=== PATIENT | male | born 1960 | race Caucasian/White ===

== ENCOUNTER 2016-04-16 05:16 | Inpatient (IN) | payer MEDICARE ==
--- NOTE | ~2016-04-16 | OR ---
Unit #: [id number] #: [id number] Patient: DEBRA MARROQUIN [id number] [place], [place] [address] [id number] I MR#: [id number] NAME: DEBRA MARROQUIN ROOM: [facility] Date of Procedure: 04/20/2016 Admission Date: 04/16/2016 Surgeon: Sanna Roa M.D. : 1960 Attending Physician: Yemi Mathur M.D. Primary Care Physician: Ricardo Grimaldo M.D. OPERATIVE REPORT PREOPERATIVE DIAGNOSIS Right foot infection. POSTOPERATIVE DIAGNOSIS Right foot infection. PROCEDURE PERFORMED Right foot incision and drainage through dorsal and medial approaches, deep abscess (). 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 ANESTHESIA General. INDICATIONS FOR SURGERY This 54-year-old poorly controlled diabetic, underwent right tibial sesamoidectomy 3 days ago. He now has a worsening white blood cell count of an excess of 24,000 and his foot now shows a pointing abscess in the dorsal aspect of the first interspace. DESCRIPTION OF PROCEDURE The patient was taken to the operating room and placed in supine position and general anesthetic was induced. The right foot was identified as the correct operative extremity during the time-out procedure. The IV antibiotic protocol was not followed because he was on preoperative IV antibiotic coverage. The right foot was prepped and draped in usual sterile fashion. The foot was exsanguinated with Esmarch bandage, which was left wrapped around the ankle to act as a tourniquet. A dorsal longitudinal incision was made over the first interspace extending between the toes measuring about 7 cm. Pus was obtained and this was cultured for aerobic and anaerobic culture and sensitivity. There appeared to be a pus tracking from the plantar aspect of the first MTP joint up the flexor hallucis longus tendon sheath into the mid foot. This was opened and copiously irrigated. A medial longitudinal incision was then made over the first MTP joint measuring 5 cm. The subcutaneous tissue was divided. The joint capsule was opened. The joint was opened. There was no apparent pus in the joint, but the joint did communicate with the plantar wound at the site of the tibial sesamoidectomy indicating he did in fact have an open joint. Unit #: [id number] #: [id number] Patient: DEBRA MARROQUIN Because there was no pus seen in the joint, this was irrigated and then closed with 3-0 nylon horizontal mattress sutures. The tourniquet was released. Bleeding was uneventful. The dorsal interspace wound was then packed with Betadine-soaked 1-inch roll gauze. Sterile fluff, 4x4s, Kerlix, ABD pads, Gurwinder wrap, and postop shoe were placed. The patient was then transported to the recovery room in stable condition. ESTIMATED BLOOD LOSS Minimal. COMPLICATIONS None. SPECIMENS Aerobic and anaerobic cultures, right foot. TOURNIQUET TIME 15 minutes. Dictated by.Nicci Gilbert/jennifer TD: 04/20/2016 22:27 JOB #: [id number] OPERATIVE REPORT X Braulio Roa MD X PROCEDURE OPERATIVE NOTE
--- NOTE | ~2016-04-16 | CR63 ---
[facility] A Service of [facility] & [facility] RADIOLOGY TEXT RESULTS PATIENT: DEBRA MARROQUIN LOCATION: [facility] [id number] : [birth year] UNIT #: [id number] AGE: [address]: Yemi Mathur MD SEX: M ORDER DR: [id number] [facility] [address] [facility]. [place], [place] [address] [id number] I MR#: [id number] Acc #: [id number] NAME: DEBRA MARROQUIN : 1960 SEX: M STUDY DATE/TIME: 04/20/2016 14:34 UNIT: [facility] ROOM: [facility] STUDY DESCRIPTION: CR Chest 2 View Attending Physician: Yemi Mathur M.D. Ordering Physician: Yemi Mathur M.D. Primary Care Physician: Ricardo Grimaldo M.D. MEDICAL IMAGING REPORT This report is preliminary unless electronic signature is present EXAM PA and lateral chest, 04/20/2016. HISTORY Shortness of air and fever starting today. FINDINGS PA and lateral views of the chest were obtained. The heart size is upper limits of normal. The vascularity is normal, and the lungs are clear. There are sternotomy wires present, and there is postop change in the thoracic spine. IMPRESSION No active disease. Dictated by... Stu Randle M.D. THIS IS AN ELECTRONICALLY VERIFIED REPORT Stu Randle M.D. at 04/21/2016 12:18 PM MAGUE/chanell TD: 04/20/2016 19:20 JOB #: [id number] MEDICAL IMAGING REPORT COPY
--- NOTE | ~2016-04-16 | A ---
[facility] Nutrition Therapy DATE: 04/27/16 Patient: DEBRA MARROQUIN Physician: FILOMENA Address: [address] Room/Bed: [address] [place] [address], Zip: [place] [address] Admit Date: 04/16/16 Date of : [birth year] Height: 5 9 Weight: 200 90.71 NUTRITIONAL ASSESSMENT: REASON: LOS NUTRITION ASSESSMENT 55 YO MALE ADMITTED FOR INFECTED ULCER RIGHT FOOT, FEVER PMH: DM, CKD, ANEMIA, HTN, CHRONIC PAIN, CAD, CABG Anthropometrics: Ht: 69" Wt: 90.7 kg BMI: 29.5 Labs: Creat 1.7 Ca++ 8.1 Accuchecks 79-145 GFR 45 Meds: Novolin, NaCl, methadone HCl, miralax, novolog, phenergan, lipitor, zofran, lopressor I/O & Bowel function: 5505/3702, last BM 04/27 Skin Integrity: Closed surgical incision right foot Edema: BLE- generalized RUE 1+ Diet: Consistent carbohydrate diet Assessment: Chart reviewed, events noted. RD seeing the pt for LOS nutrition assessment. RD spoke with the pt at bedside. Pt reports having a variable appetite, low blood sugars. and reportedly eats ~100% of meals in the morning, and intake declines throughout the day. Pt is agreeable to Glucerna once daily for supplemental nutrition. Will order at hs to prevent low blood sugars throughout the night. RD discussed the importance of glucose control, noting that the pt was educated by RDs at [facility] in May of 2015. Pt denied having any questions regarding consistent carbohydrate strategies. It is evident that the pt is not complying to the diet based on his HgbA1C upon admisison (11.6%). Pt will be NPO at midnight for a transmetatarsal amputation debridement. Dx: Impaired glycemic control RT poorly controlled DM AEB HgbA1C 11.6%, accuchecks 79-145. Intervention: 1. Consistent carbohydrate diet 2. Glucerna once daily at hs Monitoring, Evaluation and Goals: 1. Oral intake; tolerate >50-75% meals 2. Labs; WNL: glucose, promote glycemic control [facility] Nutrition Therapy DATE: 04/27/16 Patient: DEBRA MARROQUIN Physician: COLBY Address: [address] Room/Bed: [address] [place] [address], Zip: [place] [address] Admit Date: 04/16/16 Date of : [birth year] Height: 5 9 Weight: 200 90.71 3. Weight; prevent unintentional weight loss Recommendations: 1. Continue current diet as tolerated. 2. Glucerna once daily at for supplemental protein. 3. Pt may benefit from seeing an outpatient RD for follow up and accountability regarding DM/ consistent carbohydrate diet. Pt is at mild nutritional risk. Respectfully, ALICE BRINK RD, LD [employer] [facility] cc: client file
--- NOTE | ~2016-04-16 | CO ---
Unit #: [id number] #: [id number] Patient: DEBRA MARROQUIN [id number] [address] [address] [id number] I MR#: [id number] NAME: DEBRA MARROQUIN ROOM: [facility] Age: 55 Sex: M Admission Date: 04/16/2016 : 1960 Attending Physician: Yemi Mathur M.D. Primary Care Physician: Ricardo Grimaldo M.D. Consultation Date: 04/16/2016 CONSULTATION REPORT CHIEF COMPLAINT Right leg pain and swelling, positive ulcer of the right foot. HISTORY OF PRESENT ILLNESS Mr. Marroquin is a 55-year-old white male with a history of diabetes type 2, hypertension, and coronary artery disease who presented to the ER yesterday with reports of experiencing a spider bite about one month ago to the right medial leg. The patient states after the spider bite he noticed redness, swelling and pain of the extremity. The patient reports after the spider bite, he noticed the ulcer appear on his right foot. The patient reports fevers, sweats, chills and drainage from the ulcer. The patient reports pain with ambulation and states that he feels a sharp, stabbing pain in his right foot. The patient denies hspa-rhx-zcinful medication use to alleviate the pain. He denies further aggravating symptoms. The patient states his pain is a 10 out of 10 on the pain scale. The patient has a history of a previous ulcer to the right foot but states that this ulcer was on his big toe and has been healed. PAST MEDICAL HISTORY 1. Diabetes mellitus type 2. 2. Hyperlipidemia. 3. Hypertension. PAST SURGICAL HISTORY 1. Cardiac bypass surgery. 2. Cholecystectomy. ALLERGIES No known drug allergies. HOME MEDICATIONS 1. Carisoprodol. 2. Methadone HCl. 3. Aspirin. 4. Norvasc. 5. Lipitor. 6. Metoprolol. 7. Lisinopril. 8. Metformin. 9. Novolin. 10. Doxycycline. SOCIAL HISTORY He is a nonsmoker. Unit #: [id number] #: [id number] Patient: DEBRA MARROQUIN FAMILY HISTORY Congestive heart failure. REVIEW OF SYSTEMS The patient reports fever, nausea and vomiting. The patient reports pain, swelling and redness of his right lower extremity and foot. The patient reports numbness and tingling of his right foot. PHYSICAL EXAMINATION VITAL SIGNS: Blood pressure 191/121, temperature of 101, pulse 109, respirations 24, O2 99% on room air. EXTREMITIES: Right lower extremity and foot - erythema of his right lower extremity (extends from slightly below the right knee to the right foot). Warmth of the right lower extremity and foot. Tenderness to palpation of his right plantar foot and arch. Ulcer present on the right medial plantar foot/metatarsal head. No visible drainage. Partial range of motion of the right toes limited due to swelling. Full ankle dorsiflexion and plantar flexion. DIAGNOSTIC STUDIES LABORATORY: CBC - white blood cell count 17.2, hemoglobin 11.7, hematocrit 36.6. CMP - glucose 312. IMAGING: X-rays shows soft tissue swelling without evidence of soft tissue gas or acute injury. ASSESSMENT AND PLAN 1. Right foot cellulitis: Continue antibiotics per infectious disease. Right foot wound cultures per aerobic and anaerobic. C and S. 2. Infected right foot ulcer of the plantar first metatarsal head, likely secondary to prominence of a tibial sesamoid: Will order a right foot MRI without contrast. To apply dry dressing to his right foot. Patient to remain NPO. Dictated by... Andreina Durbin PA-C for Sanna Roa M.D. MARILU/silvino TD: 04/17/2016 08:38 JOB #: [id number] CC: [facility] CONSULTATION REPORT X X CONSULTATION REPORT
--- NOTE | ~2016-04-16 | CR127 ---
[facility] A Service of [facility] & [facility] RADIOLOGY TEXT RESULTS PATIENT: DEBRA MARROQUIN LOCATION: [place] [address] : [birth year] UNIT #: [id number] AGE: [address]: Yemi Mathur MD SEX: M ORDER DR: [id number] [facility] [address] [facility]. [place], [place] [address] [id number] I MR#: [id number] Acc #: [id number] NAME: DEBRA MARROQUIN : 1960 SEX: M STUDY DATE/TIME: 04/16/2016 05:20 UNIT: [facility] ROOM: [id number] STUDY DESCRIPTION: CR Foot Complete Min 3 View Rt Attending Physician: Yemi Mathur M.D. Ordering Physician: Saad Perez D.O. Primary Care Physician: Ricardo Grimaldo M.D. MEDICAL IMAGING REPORT This report is preliminary unless electronic signature is present EXAM Right foot, 04/16 at 05:20 INDICATION Swelling in the foot this morning. Patient is diabetic. FINDINGS 3 views of the right foot were obtained. No comparison radiographs. There is a talar beak. No fracture or malalignment is seen. There is soft tissue swelling in the foot and ankle. No soft tissue gas is seen. IMPRESSION Soft tissue swelling without soft tissue gas or evidence of acute injury. Dictated by... Manuel Bravo Jr., M.D. THIS IS AN ELECTRONICALLY VERIFIED REPORT Manuel Bravo Jr., M.D. at 04/17/2016 6:04 AM XI/maria l TD: 04/16/2016 08:11 JOB #: [id number] MEDICAL IMAGING REPORT COPY
--- NOTE | ~2016-04-16 | CO ---
Unit #: [id number] #: [id number] Patient: DEBRA MARROQUIN [id number] [address] [address] [id number] I MR#: [id number] NAME: DEBRA MARROQUIN ROOM: [facility] Age: 55 Sex: M Admission Date: 04/16/2016 : 1960 Attending Physician: Yemi Mathur M.D. Primary Care Physician: Ricardo Grimaldo M.D. Consultation Date: 04/16/2016 CONSULTATION REPORT CHIEF COMPLAINT Right leg pain and swelling, positive ulcer of the right foot. HISTORY OF PRESENT ILLNESS We have a 55-year-old white male with a history of diabetes type 2, hypertension and coronary artery disease who presented to the ER yesterday with reports of about 1 month ago suffering from a spider bite to the right medial leg. The patient states, after the spider bite, he noticed redness, swelling and pain of the extremity. The patient reports, after spider bite, the ulcer appeared on his right foot. The patient reports fevers, sweats and chills and drainage from the ulcer. The patient reports pain with ambulation and states that he feels a sharp stabbing pain in his foot. The patient denies smjb-oba-fiawlzr medication use to alleviate the pain. Denies further aggravating symptoms. The patient states his pain is a 10/10 on the pain scale. The patient has a history of a previous ulcer to the same foot but states that this ulcer was on his big toe and had healed. PAST MEDICAL HISTORY Diabetes mellitus, hyperlipidemia, hypertension. PAST SURGICAL HISTORY Cardiac bypass surgery, cholecystectomy. ALLERGIES No known drug allergies. HOME MEDICATIONS Carisoprodol, methadone HCL, aspirin, Norvasc, Lipitor, Metoprolol, lisinopril, metformin, Novolin and doxycycline. SOCIAL HISTORY He is a nonsmoker. FAMILY HISTORY He has CHF in his family. REVIEW OF SYSTEMS Positive for fever, nausea and vomiting, pain and swelling and redness of his right lower extremity/foot. Positive numbness and tingling of his right foot. PHYSICAL EXAMINATION VITAL SIGNS: Blood pressure of 191/121, temperature of 101, pulse of 109, Unit #: [id number] #: [id number] Patient: CARA,DEBRA respirations of 24, O2 at 99% on room air. EXTREMITIES: Erythema of his right lower extremity below the knee. Positive warmth of his right lower extremity or foot. Tenderness to palpation of his right plantar foot/arch. Positive ulcer of his right medial plantar foot/metatarsal head. No visible drainage. Positive movement of his right toes. Positive ankle dorsiflexion and plantarflexion. DIAGNOSTIC STUDIES LABS: His CBC has a white blood cell count of 17.2, hemoglobin of 11.7, hematocrit of 36.6. CMP shows glucose of 312. IMAGING: X-ray shows positive soft tissue swelling without evidence of soft tissue gas or acute injury. ASSESSMENT/PLAN 1. Right foot cellulitis. Continue antibiotics per infectious disease. Right foot wound cultures for aerobic and anaerobic. C and S. 2. Infected right foot ulcer of the plantar first metatarsal head, likely secondary to prominence of a tibial sesamoid. Right foot MRI without contrast. Apply dry dressing to his right foot. Patient to remain NPO. Dictated by... Andreina Durbin PA-C for Nicci Paz/rohini TD: 04/16/2016 12:14 JOB #: [id number] CC: Alba Dobbins CONSULTATION REPORT X X CONSULTATION REPORT
--- NOTE | ~2016-04-16 | OR ---
Unit #: [id number] #: [id number] Patient: DEBRA MARROQUIN [id number] [address] [place], [place] [address] [id number] I MR#: [id number] NAME: DEBRA MARROQUIN ROOM: 461 Date of Procedure: 04/23/2016 Admission Date: 04/16/2016 Surgeon: Jose De Jesus Flowers M.D. : 1960 Attending Physician: Yemi Mathur M.D. Primary Care Physician: Ricardo Grimaldo M.D. OPERATIVE REPORT PREOPERATIVE DIAGNOSES 1. Extensive soft tissue necrosis of right foot, status post incision and drainage x2. 2. Right foot flexor tenosynovitis of flexor hallucis longus and flexor digitorum longus. POSTOPERATIVE DIAGNOSES 1. Extensive soft tissue necrosis of right foot, status post incision and drainage x2. 2. Right foot flexor tenosynovitis of flexor hallucis longus and flexor digitorum longus. PROCEDURE PERFORMED Open right foot transmetatarsal amputation. ANESTHESIA General. ESTIMATED BLOOD LOSS 50 mL. INDICATIONS FOR PROCEDURE Mr. Marroquin is a 55-year-old gentleman with poorly controlled diabetes mellitus and overwhelming infection in the right forefoot. He has undergone two prior debridements and now has an open wound along the first web space with extensive necrosis of the soft tissue about the foot and concern for tracking flexor tenosynovitis. He has been seen and evaluated by Dr. Roa as well as myself, who recommended open transmetatarsal amputation at this point, given the severity of the soft tissue necrosis and severity of the infection. We discussed alternative of procedure, as well as risks, benefits, and alternatives. At this point, he elects to proceed. DESCRIPTION OF PROCEDURE The patient was identified in the preoperative holding area. The operative site was marked. The patient is on standing IV antibiotics and further preoperative antibiotics were not required. The patient was brought to the operating room and placed supine on the operating table. A general anesthetic was induced. The right lower extremity was prepped and draped in sterile fashion. The leg was exsanguinated with gravity exsanguination and the tourniquet inflated. Unit #: [id number] #: [id number] Patient: CARA,DEBRA The skin flap was marked out over the foot taking into consideration the previous incisions, which included a longitudinal split along the first web space as well as a medial incision along the first metatarsophalangeal joint and extending up in the metatarsal. This skin flap was fashioned excising the large plantar ulceration as well. The skin was incised sharply and dissection carried down through the subcutaneous tissue. The skin flap was elevated dorsally along the metatarsals. Each metatarsal was isolated and dissected. A small microsagittal saw was then used to perform an osteotomy of metatarsals one through five preserving normal cascade from medial to lateral. The metatarsals were dissected free from the inferior plantar flap. This was completed at the plantar skin flap in the metatarsals and residual foot passed off the field. The flexor tendons along the FDL in particular were necrotic and were debrided and excised, revealing deep to this a large purulent pocket of fluid. This was tracking up along the flexor tendon space as well as infection along the flexor hallucis longus. This area was thoroughly debrided with rongeurs and sharp excisional debridement with a 15-blade knife. Hemostat was passed up the flexor tendon sheath to confirm adequate decompression. The wound was then irrigated copiously. The wound was then left open and packed with Betadine soaked gauze. The skin flaps were left long for later revision of the skin flaps and delayed primary wound closure. The foot was then dressed with well-padded sterile dressings. DISPOSITION The patient was transported to the recovery room in stable condition. Dictated by... Nicci Heath/jennifer TD: 04/24/2016 16:12 JOB #: [id number] OPERATIVE REPORT X Jose De Jesus Flowers MD X PROCEDURE OPERATIVE NOTE
--- NOTE | ~2016-04-16 | CR72 ---
[facility] A Service of [facility] & [facility] RADIOLOGY TEXT RESULTS PATIENT: DEBRA MARROQUIN LOCATION: [place] [address] : [birth year] UNIT #: [id number] AGE: [address]: Yemi Mathur MD SEX: M ORDER DR: [id number] [facility] [address] [facility]. [place], [place] [address] [id number] I MR#: [id number] Acc #: [id number] NAME: DEBRA MARROQUIN : 1960 SEX: M STUD[facility] DATE/TIME: [facility] [address] STUDY DESCRIPTION: CR Chest Single View Portable Attending Physician: Yemi Mathur M.D. Ordering Physician: Saad Perez D.O. Primary Care Physician: Ricardo Grimaldo M.D. MEDICAL IMAGING REPORT This report is preliminary unless electronic signature is present EXAM Portable chest 04/16/2016 at 0505 hours INDICATION Nausea, vomiting, and central chest pain that started this morning. History of coronary artery disease. FINDINGS AP portable chest is compared with 07/09/2013. Patient is status post CABG. Heart size normal. The lungs are clear. No pneumothorax is seen. Patient is status post thoracolumbar fusion. Additionally, there is an old fracture of the proximal humerus on the left which is partially visible. IMPRESSION No active disease. Dictated by... Manuel Bravo Jr., M.D. THIS IS AN ELECTRONICALLY VERIFIED REPORT Manuel Bravo Jr., M.D. at 04/17/2016 6:04 AM XI/leta TD: 04/16/2016 09:05 JOB #: [id number] MEDICAL IMAGING REPORT COPY
--- NOTE | ~2016-04-16 | HP ---
Unit #: [id number] #: [id number] Patient: DEBRA MARROQUIN [id number] [place] [address] [facility]. [place], [place] [address] [id number] I MR#: [id number] NAME: DEBRA MARROQUIN ROOM: 91375 Age: 55 Sex: M Admission Date: 04/16/2016 : 1960 Attending Physician: Yemi Mathur M.D. Primary Care Physician: Ricardo Grimaldo M.D. HISTORY AND PHYSICAL DIAGNOSES ON ADMISSION 1. Right foot infected ulcer. 2. Fever. HISTORY OF PRESENT ILLNESS 55-year-old male presented to [facility] with right leg redness and swelling. As per patient, he was in his usual state of health when around one month ago he had a spider bite behind his knee and had a big knot and redness. The patient stated that afterwards he noticed an ulcer on his right foot dorsum. The patient stated that he did not seek any medical attention as there was a lot going on in his life. The patient stated that the wound has not improved but the swelling of his foot has decreased but he has redness for the past three to four days. The patient stated that he also developed fever and chills. The patient stated that he also had nausea and a couple of episodes of vomiting. Therefore, he decided to come to the hospital. In the ER, the patient was evaluated. It was decided to admit to the hospital. The patient denies having any abdominal pain, headache or visual problems. He denies sore throat, sinus congestion. The patient denies any rectal bleeding or blood in urine. There is no history of recent weight loss or loss of appetite. The patient states that he does not follow up with any family doctor. REVIEW OF SYSTEMS The rest of the review of systems was negative. PAST MEDICAL HISTORY 1. Insulin dependent diabetes mellitus. The patient states that he follows up with Dr. Grimaldo for diabetic management. 2. History of noncompliance. 3. Chronic pain syndrome. The patient states that he follows up with Dr. Yogi Eckert. 4. Hyperlipidemia. 5. Hypertension. 6. Coronary artery disease. PAST SURGICAL HISTORY Coronary artery bypass grafting. SOCIAL HISTORY The patient is . He denies smoking or drinking. FAMILY HISTORY Unit #: [id number] #: [id number] Patient: DEBRA MARROQUIN Positive for heart disease. ALLERGIES No known drug allergies. HOME MEDICATIONS The patient states that he is takin. Metformin. 2. Methadone. 3. Norvasc. 4. Aspirin. 5. Lipitor. 6. Metoprolol. 7. Novolin 70/30. 8. Lisinopril. 9. Doxycycline. PHYSICAL EXAMINATION GENERAL: The patient is lying comfortably in bed, is not in any obvious acute distress. VITAL SIGNS: On physical examination vital signs reveal a temperature of 101.9, pulse was 109 per minute, respiratory rate was 116 per minute, blood pressure was 165/125. HEENT: No conjunctival congestion. Sclerae is not icteric. NECK: Supple. Trachea is central. RESPIRATORY: Revealed breath sounds equal bilaterally. There are no wheezes or crackles. HEART: Regular rate and rhythm. S1, S2. ABDOMEN: Soft, nontender . Bowel sounds are present in all four quadrants. EXTREMITIES: The patient has right lower extremity mild swelling. There is erythema present. The patient has right foot swelling present. The patient has a right plantar foot ulcer on the medial side underneath the big toe. There is drainage present. There is tenderness present. DIAGNOSTIC STUDIES LABORATORY: On admission, the patient's creatinine is 0.6, sodium 133, potassium is 3.4. WBC 17.2, hemoglobin is 11.7, platelet count is 202. Lactic acid level was 1.0. Influenzae A and B screen was negative. The patient's troponin was negative. IMAGING: Chest x-ray did not reveal any active disease. CT scan of the abdomen and pelvis did not reveal any active disease. There were some nonobstructing stones in right renal lower pole but no hydronephrosis. Right foot x-ray - reveals soft tissue swelling without soft tissue gas or evidence of acute injury. CARDIOVASCULAR: EKG revealed sinus tachycardia with a few PVCs. Heart rate was 102 per minute. Unit #: [id number] #: [id number] Patient: DEBRA MARROQUIN ASSESSMENT AND PLAN 55-year-old male presented to [facility] with right foot ulcer. Details are as per admission H and P. 1. Right foot infected ulcer: The patient is on Zosyn and IV vancomycin. Infectious disease consulted. Dr. Roa has seen patient and has requested MRI. 2. Insulin dependent diabetes mellitus: Will continue home medications. 3. Hypertension: Will continue home medications. The patient's blood pressure is currently elevated which I attribute to methadone. He has received Clonidine and his home morning medicines. Will resume patient's methadone. 4. The patient is a Full Code. 5. Advised to call primary care physician or go to ER. Dictated by Nicci Dumont TD: 04/16/2016 10:59 JOB #: [id number] HISTORY AND PHYSICAL X Yemi Mathur MD HISTORY AND PHYSICAL
--- NOTE | ~2016-04-16 | US77 ---
[facility] A Service of [facility] & [facility] RADIOLOGY TEXT RESULTS PATIENT: DEBRA MARROQUIN LOCATION: [facility] 461-01 : [birth year] UNIT #: [id number] AGE: [address]: Yemi Mathur MD SEX: M ORDER DR: [id number] [facility] [address]. [place], [place] [address] [id number] I MR#: [id number] Acc #: [id number] NAME: DEBRA MARROQUIN : 1960 SEX: M STUDY DATE/TIME: 04/24/2016 19:09 UNIT: [facility] ROOM: [facility] STUDY DESCRIPTION: US Kidney Bilateral Complete Attending Physician: Yemi Mathur M.D. Ordering Physician: Physician Non-Staff Primary Care Physician: Ricardo Grimaldo M.D. MEDICAL IMAGING REPORT This report is preliminary unless electronic signature is present EXAM Bilateral renal ultrasound HISTORY Abnormal renal function with creatinine 1.9 and GFR of 39. Evaluate for renal size and hydronephrosis. FINDINGS The right kidney is 13.1 cm in length. There is no mass, cyst or hydronephrosis identified. The left kidney is about 10.2 cm in length and appears normal. The study is very limited by patient size. The bladder is normal. IMPRESSION The study is limited by the patient's size but the kidneys appear normal in size and there is no hydronephrosis. Dictated by... Sut Randle M.D. THIS IS AN ELECTRONICALLY VERIFIED REPORT Stu Randle M.D. at 04/25/2016 4:33 PM Vicky TD: 04/25/2016 15:17 JOB #: [id number] MEDICAL IMAGING REPORT COPY
--- NOTE | ~2016-04-16 | DS ---
Unit #: [id number] #: [id number] Patient: DEBRA MARROQUIN [id number] [address] [address] [id number] I MR#: [id number] NAME: DEBRA MARROQUIN ROOM: 461 Age: 55 Sex: M Admission Date: 04/16/2016 : 1960 Discharge Date: 04/30/2016 Attending Physician: Yemi Mathur M.D. Primary Care Physician: Ricardo Grimaldo M.D. DISCHARGE SUMMARY DIAGNOSES ON ADMISSION 1. Right foot ulcer. 2. Fever. DIAGNOSES ON DISCHARGE 1. 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 2. Status post incision and drainage done twice, followed by transmetatarsal amputation. 3. Insulin-dependent diabetes mellitus. 4. Chronic pain syndrome. 5. Hypertension. 6. Hyperlipidemia. 7. Coronary artery disease. 8. Acute kidney injury. CONSULTATIONS 1. Dr. Roa in orthopedic consultation. 2. Dr. De La Rosa in infectious disease consultation. 3. Dr. Linda in renal consultation. 4. Dr. Grimaldo in endocrinology consultation. DIAGNOSTIC STUDIES LABS: The patient's creatinine is 1.6, sodium 141, potassium 4.1. WBC is 11.5, hemoglobin 9.6, platelet count 261. HOSPITAL COURSE This 55-year-old male was admitted to [facility] with right foot ulcer. Details are as per admission H and P. The patient had initial debridement done, and wound cultures grew MRSA. The patient continued to remain febrile; therefore, he underwent another incision and drainage. The patient's overall wound did not heal, and because of his continued fever, it was decided to do transmetatarsal amputation due to depth of his infection. Since then, the patient is stable, is afebrile and wants to go home. Insulin-dependent diabetes mellitus. The patient was seen by Dr. Grimaldo in consultation. The patient's hemoglobin A1C was 11.6, so diabetes is poorly controlled. The patient was advised to follow up with Dr. Grimaldo who has continued the patient on Novolin 70/30, and he is advised to follow up with him on an outpatient basis. Acute kidney injury. The patient also developed acute kidney injury. He was seen by Dr. Linda and group in consultation. The creatinine is stable Unit #: [id number] #: [id number] Patient: DEBRA MARROQUIN at 1.6. PHYSICAL EXAMINATION GENERAL: Today, the patient is comfortable and is not in any acute distress. VITAL SIGNS: Vital signs reveal temperature of 97.8, pulse 64 per minute, respiratory rate 14 per minute and blood pressure 176/76. HEENT: Examination revealed no conjunctival congestion. Sclera is nonicteric. NECK: Neck is supple. Trachea is central. RESPIRATORY: Examination revealed decreased breath sounds bilaterally. There are no wheezes or crackles. HEART: Regular rate and rhythm. S1, S2. ABDOMEN: Abdomen is soft, nontender. Bowel sounds are present in all 4 quadrants. EXTREMITIES: The patient has a right foot dressing. CONDITION Stable. ACTIVITIES As tolerated. DISCHARGE MEDICATIONS 1. Dalbavancin 1,000 mg IV x1 and then 500 mg IV in 1 week that the patient will get on outpatient infusion. 2. Tylenol 650 mg p.o. q.6 hours p.r.n. for pain or fever. 3. Enteric-coated aspirin 81 mg p.o. daily. 4. Glucophage XR 500 mg p.o. daily before breakfast. 5. Norvasc 10 mg p.o. daily. 6. Lopressor 50 mg p.o. b.i.d. 7. MiraLAX OTC for constipation. 8. Lipitor 20 mg p.o. q.h.s. 9. Hydralazine 50 mg p.o. b.i.d. 10. Lisinopril 5 mg p.o. daily. 11. Novolin 70/30 - 10 units daily "before breakfast and 20 units before breakfast." 12. Methadone 30 mg p.o. b.i.d. alternating with 20 mg p.o. b.i.d., which is the patient's home medication for pain. FOLLOW-UP 1. The patient is advised to follow up with primary care physician in 1 week and have a CBC and BMP done. 2. The patient is advised to follow up with Dr. Roa as directed and with Dr. Linda and Dr. Grimaldo. NOTE: The plan was discussed with infectious disease and also with Dr. Roa. Dictated by... Nicci Dumont TD: 04/30/2016 09:41 JOB #: [id number] Unit #: [id number] #: [id number] Patient: DEBRA MARROQUIN DISCHARGE SUMMARY X Yemi Mathur MD DISCHARGE SUMMARY
--- NOTE | ~2016-04-16 | XA166 ---
[facility] A Service of [facility] & [facility] RADIOLOGY TEXT RESULTS PATIENT: DEBRA MARROQUIN LOCATION: [facility] 475-01 : [birth year] UNIT #: [id number] AGE: [address]: Yemi Mathur MD SEX: M ORDER DR: [id number] [facility] [address] [facility] [address] [address] [place], [place] [address] [id number] I MR#: [id number] Acc #: [id number] NAME: DEBRA MARROQUIN : 1960 SEX: M STUDY DATE/TIME: 04/20/2016 15:49 UNIT: [facility] ROOM: [facility] STUDY DESCRIPTION: XA PICC Line Placement WO Port Attending Physician: Yemi Mathur M.D. Ordering Physician: Physician Non-Staff Primary Care Physician: Ricardo Grimaldo M.D. MEDICAL IMAGING REPORT This report is preliminary unless electronic signature is present EXAM Right-sided PICC line placement. INDICATION Need for IV access in a patient with suspected osteomyelitis. PROCEDURE The procedure was explained to the patient including risks, benefits, and potential complications and potential for alternative forms of treatment. Informed consent was obtained and prior to initiating the procedure, a formal time-out procedure was obtained. Using all elements of maximal sterile barrier technique, including hand hygiene, caps, sterile gowns, and gloves and masks, the right arm was prepped with 2% chlorhexidine for cutaneous antisepsis and covered with a large sterile sheet. Real-time sterile ultrasound guidance was used to localize the right upper extremity vein which was found to be patent and compressible. Hard copy ultrasound image was obtained after local anesthesia with 1% Xylocaine. The vein was punctured using real-time sterile ultrasound guidance and an 0.008 guidewire was advanced into the superior vena cava under fluoroscopic guidance. A sheath was advanced over the wire. Catheter was measured and trimmed, but could not be advanced past the right brachial vein. At this point, I advanced a Savvy balloon catheter over the wire, where the patient was noted to have an area of stenosis. Balloon was inflated, deflated, and then removed and at this point, the PICC line passed easily over the wire and was positioned within the superior vena cava. Following placement of the catheter, it flushed and aspirated easily. Total fluoroscopy time was 1.4 minutes and a total of 4 fluoroscopic images were obtained. Position of the catheter was confirmed with a radiographic image. IMPRESSION 1. Successful placement of a right-sided PICC line which terminates in [facility] A Service of [facility] RADIOLOGY TEXT RESULTS PATIENT: DEBRA MARROQUIN LOCATION: [facility] 475-01 : [birth year] UNIT #: [id number] AGE: [address]: Yemi Mathur MD SEX: M ORDER DR: the superior vena cava. This catheter is ready for immediate use. Ultrasound and fluoroscopy were used during placement of the catheter and permanent images were saved. 2. Successful venoplasty of the patient's right brachial vein. Dictated by... Janet Batista M.D. THIS IS AN ELECTRONICALLY VERIFIED REPORT Janet Batista M.D. at 04/21/2016 5:57 PM MELISSA/geetha TD: 04/21/2016 10:10 JOB #: [id number] MEDICAL IMAGING REPORT COPY
--- NOTE | ~2016-04-16 | US85 ---
[facility] A Service of [facility] & [facility] RADIOLOGY TEXT RESULTS PATIENT: DEBRA MARROQUIN LOCATION: [facility] 461- : [birth year] UNIT #: [id number] AGE: [address]: Yemi Mathur MD SEX: M ORDER DR: [id number] [facility] [address] [place], [place] [address] [id number] I MR#: [id number] Acc #: [id number] NAME: DEBRA MARROQUNI : 1960 SEX: M STUDY DATE/TIME: 04/24/2016 18:49 UNIT: [facility] ROOM: [facility] STUDY DESCRIPTION: US LE Veins Unilat or Ltd Stdy Attending Physician: Yemi Mathur M.D. Ordering Physician: Landon De La Rosa M.D. Primary Care Physician: Ricardo Griamldo M.D. MEDICAL IMAGING REPORT This report is preliminary unless electronic signature is present EXAM Unilateral right lower extremity venous Doppler, 04/24/2016. CLINICAL HISTORY Leg pain, 1 day post foot surgery. TECHNIQUE Venous ultrasound examination of the right lower extremity was performed using grayscale, spectral Doppler and color flow Doppler imaging. FINDINGS The examination is negative. There is no evidence of right lower extremity deep venous thrombus from the groin to the lower calf. Visualized greater saphenous vein is also patent. IMPRESSION Negative examination. No evidence of right lower extremity deep venous thrombosis. Dictated by... Robin Granda M.D. THIS IS AN ELECTRONICALLY VERIFIED REPORT Robin Granda M.D. at 04/27/2016 4:32 PM TEV/pc TD: 04/25/2016 13:56 JOB #: [id number] MEDICAL IMAGING REPORT COPY
--- NOTE | ~2016-04-16 | MR59 ---
[facility] A Service of [facility] & [facility] RADIOLOGY TEXT RESULTS PATIENT: DEBRA MARROQUIN LOCATION: [facility] 475-01 : [birth year] UNIT #: [id number] AGE: [address]: Yemi Mathur MD SEX: M ORDER DR: [id number] [facility] [address] [place], [place] [address] [id number] I MR#: [id number] Acc #: [id number] NAME: DEBRA MARROQUIN : 1960 SEX: M STUDY DATE/TIME: 04/16/2016 13:42 UNIT: [facility] ROOM: [facility] STUDY DESCRIPTION: MR Foot WWo Contrast Rt Attending Physician: Yemi Mathur M.D. Ordering Physician: Sanna Roa M.D. Primary Care Physician: Ricardo Grimaldo M.D. MRI CENTER REPORT This report is preliminary unless electronic signature is present. EXAM MRI of the right foot with and without contrast. HISTORY 55-year-old male states was bitten by a brown recluse spider 1 month ago on great toe; right foot swelling. COMPARISON Right foot films 04/16/2016. TECHNIQUE Multiplanar multiecho imaging was performed of the right mid and forefoot utilizing a high field magnet and dedicated protocol. Short-axis coronal T1-weighted images were performed following IV gadolinium. FINDINGS Examination demonstrates a cutaneous ulcer along the plantar aspect of the forefoot at the level of the sesamoids and first MTP joint. Gel capsule placed over the ulcer. Ulcer is estimated about 1.4 cm in greatest dimension. No deep penetrating ulcer is identified. There is confluent edema extending all the way to the medial hallux sesamoid with marrow edema within the medial hallux sesamoid as well as enhancement postcontrast. In the appropriate clinical setting, this would be characteristic of osteomyelitis. Patient does demonstrate a bipartite medial hallux sesamoid. The lateral hallux sesamoid appears intact. There is minimal first MTP joint effusion. Generalized soft tissue swelling and edema throughout the mid and forefoot with some enhancement postcontrast. Findings are compatible with active cellulitis. No drainable fluid collection or abscess. There is also edema within the plantar musculature, particularly involving the abductor hallus muscle. This could represent reactive changes or myositis. Extensor and flexor tendons unremarkable. STS. [facility] A Service of [facility] RADIOLOGY TEXT RESULTS PATIENT: DEBRA MARROQUIN LOCATION: [place] [address] : [birth year] UNIT #: [id number] AGE: [address]: Yemi Mathur MD SEX: M ORDER DR: IMPRESSION 1. Shallow ulcer along the plantar aspect of the forefoot at the level of the first MTP joint and hallux sesamoids. No deep penetrating ulcer identified. 2. Marrow edema and marrow enhancement within the medial hallux sesamoid does raise the concern for underlying osteomyelitis. 3. Diffuse soft tissue swelling and edema throughout the forefoot with confluent edema, particularly along the first MTP joint with enhancement postcontrast, all compatible with active infection. There is edema within the intrinsic foot musculature, particularly involving the abductor hallus muscle. This may represent coexisting myositis. No drainable fluid collection or abscess. Dictated by... Luis Enrique Eddy M.D. THIS IS AN ELECTRONICALLY VERIFIED REPORT Luis Enrique Eddy M.D. at 04/17/2016 8:22 AM Brian TD: 04/16/2016 17:08 JOB #: [id number] MRI CENTER REPORT COPY
--- NOTE | ~2016-04-16 | OR ---
Unit #: [id number] #: [id number] Patient: DEBRA MARROQUIN [id number] [address] [place], [place] [address] [id number] I MR#: [id number] NAME: DEBRA MARROQUIN ROOM: 461 Date of Procedure: 04/28/2016 Admission Date: 04/16/2016 Surgeon: Sanna Roa M.D. : 1960 Attending Physician: Yemi Mathur M.D. Primary Care Physician: Ricardo Grimaldo M.D. OPERATIVE REPORT PREOPERATIVE DIAGNOSIS Right transmetatarsal amputation wound. POSTOPERATIVE DIAGNOSIS Right transmetatarsal amputation wound. PROCEDURE PERFORMED 1. 15 cm right foot wound closure in layers (31865). 2. Right percutaneous Achilles tendon lengthening (58775). ASSISTANTS MD Garrett and MARCO Allen. ANESTHESIA General. INDICATIONS FOR SURGERY The patient is a 55-year-old poorly controlled diabetic male, who underwent open right foot transmetatarsal amputation 5 days ago. His wound now appears appropriate for closure. He has been receiving IV antibiotics. He is now to undergo wound closure as well as percutaneous Achilles tendon lengthening. DESCRIPTION OF PROCEDURE The patient was taken to the operating room and placed in supine position and general anesthetic was induced. The right foot was identified as the correct operative extremity during the time-out procedure. The IV antibiotic protocol was not followed because he was on preoperative IV antibiotics. A tourniquet was not utilized. The foot was prepped and draped in the usual sterile fashion. A 15-knife blade was then used to debride all necrotic appearing skin edges and all necrotic appearing subcutaneous tissue. The wound was then irrigated with 1 L of saline. The foot wound was then closed in layers using 2-0 Vicryl subcutaneous sutures and 2-0 nylon [id number] sutures. A #11 knife blade was then used to perform a percutaneous Achilles tendon lengthening. The medial half of the Achilles tendon was cut 2.5 cm proximal to the insertion. A second lateral hemisection was performed 2.5 cm proximal to the first hemisection. A third medial hemisection was performed 2.5 cm proximal to the second hemisection. The ankle was then Unit #: [id number] #: [id number] Patient: DEBRA MARROQUIN gently dorsiflexed until 10 degrees of ankle dorsiflexion was obtained. The Achilles wounds were closed with Steri-Strips. The foot wound was dressed with Xeroform gauze, dressing, sponges, cast padding, and a posterior fiberglass splint. The patient was then transported to the recovery room in stable condition. ESTIMATED BLOOD LOSS Minimal. COMPLICATIONS None. SPECIMENS None. TOURNIQUET TIME Zero. Dictated by.Nicci Gilbert/jennifer TD: 04/29/2016 06:11 JOB #: [id number] OPERATIVE REPORT X Braulio Roa MD X PROCEDURE OPERATIVE NOTE
--- NOTE | ~2016-04-16 | EKG ---
PATIENT: DEBRA MARROQUIN UNIT #: [id number] Ventricular Rate: 102 BPM Atrial Rate: 102 BPM P-R Interval: 166 ms QRS Duration: 94 ms Q-T Interval: 364 ms QTC Calculation(Bezet): 474 ms P Charlotte: 32 degrees Calculated R Charlotte: 69 degrees Calculated T Charlotte: 65 degrees Diagnosis Line: Sinus tachycardia with occasional Premature Diagnosis Line: ventricular complexes Diagnosis Line: Possible Left atrial enlargement Diagnosis Line: Borderline ECG Diagnosis Line: No previous ECGs available Diagnosis Line: Confirmed by JUAN M RAYMOND MD ([id number]) on Diagnosis Line: 04/16/2016 8:07:45 AM INTERPRETING MD: DAVID
--- NOTE | ~2016-04-16 | CO ---
Unit #: [id number] #: [id number] Patient: DEBRA MARROQUIN [id number] [address] [address] [id number] I MR#: [id number] NAME: DEBRA MARROQUIN ROOM: [facility] Age: 55 Sex: M Admission Date: 04/16/2016 : 1960 Attending Physician: Yemi Mathur M.D. Primary Care Physician: Ricardo Grimaldo M.D. Consultation Date: 04/16/2016 CONSULTATION REPORT CHIEF COMPLAINT Patient complains of right leg pain and swelling and a positive ulcer to his right foot. HISTORY OF PRESENT ILLNESS We have a 55-year-old white male with a history of diabetes mellitus type 2, hypertension and coronary artery disease who presented to the emergency room yesterday with reports of about 1 month ago suffering from a spider bite to his right medial leg. The patient reports picking at the bite and noticing an infection after that. He states, after the spider bite, he had redness and swelling and pain of the right lower extremity. The patient reports ulcer appeared after the spider bite on his right foot. The patient reports positive fever, sweats and chills and drainage from the ulcer. The patient reports pain with ambulation. Denies stlh-vxw-zenyack medication use to alleviate pain. Denies further aggravating symptoms. His pain is a 10/10 on a pain scale. Positive history of a previous ulcer to his right foot, but the patient states that this ulcer was on his right big toe. PAST MEDICAL HISTORY Positive for diabetes mellitus, hyperlipidemia and hypertension. PAST SURGICAL HISTORY Positive for cholecystectomy and cardiac bypass surgery. ALLERGIES No known drug allergies. HOME MEDICATIONS Carisoprodol, methadone, aspirin, Norvasc, Lipitor, Metoprolol, lisinopril, metformin, Novolin and doxycycline. SOCIAL HISTORY He is a nonsmoker. FAMILY HISTORY Positive for congestive heart failure. REVIEW OF SYSTEMS Positive fever, nausea and vomiting. Positive pain, swelling and redness of right lower extremity and foot. Positive neuropathy of his right foot. PHYSICAL EXAMINATION VITAL SIGNS: Blood pressure of 191/121. His temperature was 101, pulse Unit #: [id number] #: [id number] Patient: DEBRA MARROQUIN 109, respirations 24, O2 99% on room air. EXTREMITIES: Positive erythema of his right lower extremity below the knee. Positive warmth of right lower extremity and foot. Positive tenderness to palpation of the right plantar foot. Positive ulcer of the right medial plantar foot and metatarsal head. No visible drainage. Positive movement of his right toes. Positive ankle dorsiflexion and plantarflexion. DIAGNOSTIC STUDIES LABS: CBC with white blood cell count of 17.2, hemoglobin 11.7, hematocrit 36.6. CMP showed a glucose of 312. IMAGING: X-ray shows soft tissue swelling without evidence of soft tissue gas or acute injury. ASSESSMENT/PLAN 1. Right foot cellulitis. We are going to continuing antibiotics per infectious disease. Right foot wound culture for aerobic and anaerobic. C and S. 2. Infected right foot ulcer of plantar first metatarsal head - likely secondary to a prominence of a tibial sesamoid. Right foot MRI without contrast. Apply dry dressing to the right foot. Patient NPO. Dictated by... Andreina Durbin PA-C for Nicci Paz/rohini TD: 04/16/2016 11:48 JOB #: [id number] CC: Fifi Avalos ([facility]) CONSULTATION REPORT X X CONSULTATION REPORT
--- NOTE | ~2016-04-16 | CO ---
Unit #: [id number] #: [id number] Patient: DEBRA MARROQUIN [id number] [address] [place], [place] [address] [id number] I MR#: [id number] NAME: DEBRA MARROQUIN ROOM: 475 Age: 55 Sex: M Admission Date: 04/16/2016 : 1960 Attending Physician: Yemi Mathur M.D. Primary Care Physician: Ricardo Grimaldo M.D. Requesting Physician: Yemi Mathur M.D. Consultation Date: 04/16/2016 CONSULTATION REPORT REASON FOR CONSULTATION Diabetic foot infection, cellulitis, ulcer and possible underlying osteomyelitis. HISTORY OF PRESENT ILLNESS This is a 55-year-old gentleman with a history of diabetes, and previous diabetic foot ulcer and infection, who was admitted with swelling pain and redness over the right leg and a chronic right foot ulcer with new swelling, fever, and chills and emesis. He told me that he possibly had a spider bite, although he never saw a spider. He did have fever on admission. Cultures are pending. MRI has been ordered and surgery has been consulted. He was put on vancomycin and Zosyn and ID was consulted for antibiotic recommendations. PAST MEDICAL HISTORY Diabetes mellitus with neuropathy. History of noncompliance, chronic pain syndrome. Hyperlipidemia, hypertension, coronary artery disease. PAST SURGICAL HISTORY Previous surgery is CABG. SOCIAL HISTORY . No drug, alcohol, or tobacco abuse. FAMILY HISTORY Positive for heart disease. ALLERGIES None. HOME MEDICATIONS Metformin, methadone, Norvasc, aspirin, Lipitor, metoprolol, NovoLog, doxycycline and lisinopril. HOSPITAL MEDICATIONS Vancomycin and Zosyn. SYSTEM REVIEW Fever and chills. Right leg pain, right foot ulcer. Swelling and redness of the leg. No abdominal pain. He had some nausea and emesis on admission, which has not resolved. No chest pain, headache, etc. PHYSICAL EXAMINATION GENERAL: Young while male who looked older than her stated age. He is Unit #: [id number] #: [id number] Patient: DEBRA MARROQUIN awake and alert in no acute distress. VITAL SIGNS: Temperature is 101.1, heart rate 100, respiration 24, blood pressure 160/100. Oral hygiene is poor. Upper teeth care completely missing. Lower teeth are carious. NECK: Supple. There is no JVD. There is a right foot swelling and cellulitis. Cellulitis also extending from the medial aspect of the right calf and there is a large ulcer in the bottom of the right foot. There was evidence of neuropathy. Peripheral pulses are palpable. However, left leg shows no wound or cellulitis. LUNGS: Clear to percussion and auscultation. HEART: Heart sounds are normal. There are no murmurs. ABDOMEN: Grossly obese. Abdomen is soft and nontender with organomegaly or ascites. Bowels are normal. NEUROLOGIC: Nonfocal. DIAGNOSTIC STUDIES LABORATORY DIAGNOSTIC STUDIES: Lactic acid is 1. Urinalysis shows glucosuria. There is no WBC in the urine. Lipase 18. White count is 7.2, hemoglobin 11.7, platelets 202, (1) is 87%. Influenza screen is negative. Sodium 133, potassium 3.4, chloride 97, CO2 25, BUN 10, creatinine 0.6, glucose 312. LFTs are normal. IMAGING STUDIES: Chest x-ray show no active disease. X-ray of the foot shows no tissue swelling. There is no gas or acute injury. MRI: MRI of the foot is pending. IMPRESSION Diabetic foot ulcer with infection, bleeding cellulitis of the foot, as well as leg. Suspect underlying osteomyelitis. RECOMMENDATIONS Agree with vancomycin and Zosyn as initial empiric therapy. Weight on the blood cultures to adjust antimicrobial therapy. Based on MRI results, the patient may need debridement. If (2) is present I would recommend deep bone culture and bone culture to help guide antimicrobial therapy. Further recommendation will follow. Dictated by... Nicci Urban/yuli TD: 04/17/2016 09:55 JOB #: [id number] Unit #: [id number] #: [id number] Patient: DEBRA MARROQUIN CONSULTATION REPORT X Landon De La Rosa MD CONSULTATION REPORT
--- NOTE | ~2016-04-16 | CT4 ---
[facility] A Service of [facility] & [facility] RADIOLOGY TEXT RESULTS PATIENT: DEBRA MARROQUIN LOCATION: [facility] 475- : [birth year] UNIT #: [id number] AGE: [address]: Yemi Mathur MD SEX: M ORDER DR: [id number] [facility] [address] [facility]. [place], [place] [address] [id number] I MR#: [id number] Acc #: [id number] NAME: DEBRA MARROQUIN : 1960 SEX: M STUDY DATE/TIME: 04/16/2016 6:26 UNIT: CEDOF ROOM: 24055 STUDY DESCRIPTION: CT Abd and Pelv Wo Cont Attending Physician: Yemi Mathur M.D. Ordering Physician: Saad Perez D.O. Primary Care Physician: Rciardo Grimaldo M.D. MEDICAL IMAGING REPORT This report is preliminary unless electronic signature is present EXAM CT abdomen and pelvis without contrast. Date of study 04/16/[address] dated 07/09/2013 HISTORY Nausea, vomiting and fever for 10 days, bilateral upper abdominal pain. TECHNIQUE This CT exam was performed with one or more of the following radiation dose reduction techniques: Automatic exposure control, adjustment of mA and/or kV according to patient size, and iterative reconstruction. FINDINGS Lung bases show what appear to be chronic changes in the right middle lobe but are otherwise unremarkable. Abdomen: The gallbladder has been removed. Unenhanced images of the liver and spleen are otherwise unremarkable. The pancreas is normal. The adrenal glands are normal. There are some nonobstructing calculi in the right kidney but no more than 1 to 2 mm in size. There is soft tissue fullness in the left renal hilum, but there is no hydronephrosis or ureterolithiasis on either side. The aorta is normal in caliber. There is no bowel obstruction. Pelvis: There is no pelvic mass or inflammatory change or abnormal fluid collection. The appendix is normal. There is some chronic bony abnormalities including spondylolysis and grade 1 anterolisthesis, but no acute bony abnormality is seen. IMPRESSION There is no renal or bowel or biliary obstruction. There are some STS. [facility] A Service of [facility] & [facility] RADIOLOGY TEXT RESULTS PATIENT: DEBRA MARROQUIN LOCATION: [place] [address]- : [birth year] UNIT #: [id number] AGE: [address]: Yemi Mathur MD SEX: M ORDER DR: nonobstructing stones in the right renal lower pole but no hydronephrosis or ureterolithiasis is seen. On the CT scan of June 2013 a soft tissue nodule involving the left kidney and hilum was seen estimated at about 2 x 2.5 cm in size. That has clearly grown in the interval now measuring about 4.7 x 4.2 cm in size. Obviously a growing neoplasm is strongly suspected. There is again no hydronephrosis, and no other acute abnormality is seen. Consider followup MRI or pre and post contrast CT of the kidneys for definitive evaluation. No biliary or bowel obstruction, normal appendix. Dictated by... Robin Granda M.D. THIS IS AN ELECTRONICALLY VERIFIED REPORT Robin Granda M.D. at 04/16/2016 1:31 PM TEV/bd TD: 04/16/2016 08:56 JOB #: [id number] MEDICAL IMAGING REPORT COPY
--- NOTE | ~2016-04-16 | CO ---
Unit #: [id number] #: [id number] Patient: DEBRA MARROQUIN [id number] [address] [place], [place] [address] [id number] I MR#: [id number] NAME: DEBRA MARROQUIN ROOM: 461 Age: 55 Sex: M Admission Date: 04/16/2016 : 1960 Attending Physician: Yemi Mathur M.D. Primary Care Physician: Ricardo Grimaldo M.D. CONSULTATION REPORT REASON FOR CONSULTATION Elevated creatinine level. HISTORY OF PRESENT ILLNESS The patient is a 55-year-old white male with known history of hypertension and diabetes, admitted with right foot infection and has been undergoing debridement. The patient was also on lisinopril and vancomycin, the last vancomycin level noted to be 17. The patient's creatinine level elevated to 2 with baseline creatinine less than 1. The patient does not report any previous history of renal problems and has not seen Nephrology in the past. REVIEW OF SYSTEMS CVS: No chest pain. RESPIRATORY: No cough or expectoration. GI: No diarrhea, no vomiting. : No hematuria, no dysuria. PAST SURGICAL HISTORY Status post coronary artery bypass graft. SOCIAL HISTORY . Does not drink or smoke. FAMILY HISTORY Significant for coronary artery disease. ALLERGIES No known drug allergies. HOME MEDICATIONS Include metformin, methadone, Norvasc, aspirin, Lipitor, lisinopril, doxycycline, vancomycin previously. PHYSICAL EXAMINATION GENERAL: The patient is awake, alert, and oriented. VITAL SIGNS: Blood pressure is 160/80, heart rate is 80 per minute, temperature afebrile. HEENT: Head is atraumatic. Extraocular movements are intact. NECK: Supple. There is no elevation of JVD. CHEST: Clear. Air entry is equal bilaterally. Breathing is vesicular in nature. S1 and S2 audible. There is no S3, no S4. ABDOMEN: Soft. There is no organomegaly. No guarding. No rigidity. No rebound tenderness. The patient has right foot dressing, status post Unit #: [id number] #: [id number] Patient: DEBRA MARROQUIN debridement. DIAGNOSTIC STUDIES LABORATORY RESULTS: Significant for sodium 139, potassium 4.3, chloride 106, CO2 27, BUN 15, creatinine 2.6, calcium 8.1. WBC 17. H and H are 8.4 and 26.5 with a platelet count of 180. IMPRESSION 1. Acute kidney injury, possible vancomycin related toxicity versus acute tubular necrosis secondary to underlying infection complicated by lisinopril. 2. Diabetes. 3. Chronic kidney disease stage 2 likely underlying hypertensive nephrosclerosis, diabetic nephropathy. 4. Anemia, possible underlying anemia of chronic kidney disease. 5. Right foot diabetic infection. 6. Coronary artery disease, status post coronary artery bypass grafting. Expect renal function to stabilize. It might take 1 to 2 days before the kidney function improves. We will refrain from nephrotoxic antibiotics and NSAIDS. Dictated by... Cade Cain M.D. RA/jennifer TD: 04/27/2016 00:57 JOB #: [id number] CONSULTATION REPORT X Cade Cain MD X CONSULTATION REPORT
--- NOTE | ~2016-04-16 | OR ---
Unit #: [id number] #: [id number] Patient: DEBRA MARROQUIN [id number] [address] [place], [place] [address] [id number] MR#: [id number] NAME: DEBRA MARROQUIN ROOM: [facility] Date of Procedure: 04/17/2016 Admission Date: 04/16/2016 Surgeon: Jose De Jesus Flowers M.D. : 1960 Attending Physician: Yemi Mathur M.D. Primary Care Physician: Ricardo Grimaldo M.D. OPERATIVE REPORT PREOPERATIVE DIAGNOSIS Right hallux medial sesamoid osteomyelitis. POSTOPERATIVE DIAGNOSIS Right hallux medial sesamoid osteomyelitis. PROCEDURES PERFORMED 1. Right hallux medial sesamoidectomy. 2. Irrigation and debridement of first metatarsal plantar ulceration to the fascia. PATIENT ACCOUNTS MANAGER Florence De La Cruz APRN, NIMISHA. ANESTHESIA General. ESTIMATED BLOOD LOSS Minimal. COMPLICATIONS None apparent. SPECIMENS Cultures to microbiology. INDICATIONS FOR PROCEDURE Mr. Marroquin is a 55-year-old gentleman with an ulceration under the first metatarsal head with osteomyelitis of the tibial sesamoid. Operative intervention with debridement and excision of the affected sesamoids have been discussed. He elected to proceed. DESCRIPTION OF PROCEDURE The patient was identified in the preoperative holding area. The operative site was marked. The patient was brought to the operating room and placed supine on the operating table. A general anesthetic was induced. The right lower extremity was prepped and draped in sterile fashion. Preoperative antibiotics were not required as this patient on standing antibiotics. The foot was exsanguinated up to the ankle and the Esmarch bandage used as a tourniquet. The area of the ulceration was identified and this was then Unit #: [id number] #: [id number] Patient: DEBRA MARROQUIN excised back to healthy tissue including down the fascia. Deep to this the medial sesamoid was exposed. This was then circumferentially dissected and freed from its position in the tendon. This was removed in one piece. Any necrotic or nonviable tissue was debrided with a combination of rongeurs and a 15-blade knife. The wound was then irrigated. Hemostasis was achieved with Bovie electrocautery. The tourniquet was then removed. A Betadine soaked Kerlix then placed into the wound and a sterile dressing applied. DISPOSITION Stable to the recovery room. Dictated by... Nicci Heath/jennifer TD: 04/18/2016 02:47 JOB #: [id number] OPERATIVE REPORT X Jose De Jesus Flowers MD PROCEDURE OPERATIVE NOTE
[~2016-04-16 05:16] MED LIST: ALPRAZOLAM0.5 MG PO; ASPIRIN EC81 M1 PO; ASPIRIN81 M1 PO; ASPIRIN81 M2 PO; ASPIRINEC PO; BUMEX PO; CARVEDILOL3.125 MG PO; COREG PO; COREG12.5 MG PO; COREG3.125 MG PO; DOXYCYCLINE150 MG PO; DURAGESIC TOP; ECOTRIN81 M1 PO; GLUCOVANCE PO; HUMULIN 70/30 V10 ML; HUMULIN 70/30 V10 ML SUBQ; HYDROCHLOROTHIA25 MG PO; HYZAAR 100-25 T1 TAB PO; HYZAAR PO; LANTUS100 U/ML; LEVEMIR SQ; LEVEMIR SUBQ; LIPITOR20 MG PO; LISINOPRIL20 MG PO; LOSARTAN POTASS50 MG PO; METFORMIN HCL500 M3 PO; METHADONE HCL10 MG PO; METHADONE PO; METHADOSE10 M1 PO; METHADOSE10 MG PO; METOPROLOL TAR25 MG PO; METOPROLOL TART25 MG PO; NORCO 10/325 TA1 TAB PO; NORVASC PO; NORVASC10 MG PO; NOVOLIN 70/30 V10 M1 SUBCON; NOVOLIN 70/30 V10 M1 SUBQ; NOVOLIN 70100 UNITS/ SUBQ; NOVOLOG100 U/ML SUBQ; NOVOLOG100 UNITS/ SUBQ; NOVOLOG7030 SUBQ; NYSTATIN5 ML PO; OXYCODONE HCL10 MG PO; PANTOPRAZOLE SO40 MG PO; PERCOCET 10/3251 TAB PO; PERCOCET10 PO; PHENERGAN25 MG PO; PLAVIX PO; PRINIVIL20 M1 PO; PROTONIX PO; SIMVASTATIN40 MG PO; SOMA PO; TOPROL XL 50 MG50 MG PO; TOPROL XL PO; VASOTEC PO; WALGREEN'S PHARMACY; ZESTRIL40 MG PO; ZOCOR PO; ZOCOR20 MG PO; ZOCOR5 MG
[2016-04-16 05:35] LABS: BASOPHIL% 0.1 % (0-2.5); EOSINOPHIL# 0.1 X10e3 (0-0.7); EOSINOPHIL% 0.4 % (0.0-7.0); HEMATOCRIT 36.6 % (38.0-50.0); HEMOGLOBIN 11.7 gm/dL (13.0-16.0); LYMPHOCYTE% 5.8 % (17.0-45.0); MEAN CELL VOLUME 75.5 FL (83-96); MEAN CORPUSCULAR HEMOGLOBIN 24.1 PG (28-34); MEAN CORPUSCULAR HGB CONC 31.9 g/dL (30-36); MEAN PLATELET VOLUME 9.7 FL (6.5-11.5); NEUTROPHIL# 15.1 X10e3 (1.5-7.1); NEUTROPHIL% 87.7 % (40-75); PLATELET COUNT 202 X10e3 (140-420); RED BLOOD COUNT 4.85 X10e (3.90-5.60); RED CELL DISTRIBUTION WIDTH 15.6 % (11.0-15.5); WHITE BLOOD COUNT 17.2 X10e3 (4.0-10.5)
[2016-04-16 05:36] LABS: DIFF IND YES
[2016-04-16 05:55] LABS: ALBUMIN SERUM 3.2 g/dL (3.5-5.0); ALKALINE PHOSPHATASE 105 U/L (32-92); ALT (SGPT) 15 U/L (10-40); AST (SGOT) 10 U/L (10-42); BILIRUBIN, DIRECT 0.1 mg/dL (0.0-0.2); BILIRUBIN,INDIRECT 0.5 mg/dL (0.0-0.9); BILIRUBIN,TOTAL 0.6 mg/dL (0.2-2.0); BLOOD UREA NITROGEN 10 mg/dL (9-23); BUN/CREATININE RATIO 16.66; CALCIUM SERUM 8.9 mg/dL (8.4-10.2); CARBON DIOXIDE 25 mmol/L (22-31); CHLORIDE 97 mmol/L (100-111); CREATININE SERUM 0.6 mg/dL (0.6-1.4); GLOM FILT RATE Estimated ABOVE60 mL/min (>60); GLUCOSE FASTING 312 mg/dL (70-110); POTASSIUM 3.4 mmol/L (3.5-5.1); PROTEIN TOTAL SERUM 8.1 g/dL (6.0-8.3); SODIUM 133 mmol/L (135-145)
[2016-04-16 06:00] LABS: INFLUENZA A NEG (NEG); INFLUENZA B NEG (NEG)
[2016-04-16 06:11] LABS: ANISOCYTOSIS SL; MICROCYTOSIS MOD; PLATELET ESTIMATE NORMAL (NORMAL)
[2016-04-16 06:33] LABS: URINE SOURCE CLEAN CATCH
[2016-04-16 06:38] LABS: URINE APPEARANCE CLEAR; URINE BILIRUBIN NEG (NEG); URINE BLOOD 2+ (NEG); URINE COLOR YELLOW; URINE GLUCOSE >1000 MG/DL (NEG); URINE KETONE 3+ (NEG); URINE LEUKOCYTE ESTERASE NEG (NEG); URINE NITRATE NEG (NEG); URINE PROTEIN 3+ (NEG); URINE SPECIFIC GRAVITY 1.035 (1.003-1.035)
[2016-04-16 06:40] LABS: URINE BACTERIA AUWI NEG (NEGATIVE); URINE SQUAMOUS EPITHELIAL CELL NONE SEEN /[HPF]; UWBCS1 AUWI 0-2 (0-5)
[2016-04-16 06:42] LABS: CULTURE INDICATED? NO
[2016-04-16 07:02] LABS: POC - CKMB <1.0 ng/mL (0.0-7.9); POC - TROPONIN <0.05 ng/mL (<=0.05)
[2016-04-16] MEDS ORDERED: NORVASC10 MG PO (07:53)
[2016-04-16] MEDS ORDERED: LIPITOR20 MG PO (07:53)
[2016-04-16] MEDS ORDERED: LOPRESSOR PO (07:54)
[2016-04-16] MEDS ORDERED: PRINIVIL20 M1 PO (07:54)
[2016-04-16] MEDS ORDERED: NOVOLIN 70100 UNITS/ SUBQ (07:57)
[2016-04-16] MEDS ORDERED: GLUCOPHAGE XR500 MG PO (07:58)
[2016-04-17 04:13] LABS: HEMATOCRIT 34.4 % (38.0-50.0); HEMOGLOBIN 10.8 gm/dL (13.0-16.0); MEAN CELL VOLUME 74.8 FL (83-96); MEAN CORPUSCULAR HEMOGLOBIN 23.4 PG (28-34); MEAN CORPUSCULAR HGB CONC 31.3 g/dL (30-36); MEAN PLATELET VOLUME 9.3 FL (6.5-11.5); RED BLOOD COUNT 4.6 X10e (3.90-5.60); RED CELL DISTRIBUTION WIDTH 15.8 % (11.0-15.5); WHITE BLOOD COUNT 17.8 X10e3 (4.0-10.5)
[2016-04-17 04:35] LABS: BLOOD UREA NITROGEN 14 mg/dL (9-23); CALCIUM SERUM 8.3 mg/dL (8.4-10.2); CARBON DIOXIDE 23 mmol/L (22-31); CHLORIDE 105 mmol/L (100-111); CREATININE SERUM 0.8 mg/dL (0.6-1.4); GLOM FILT RATE Estimated ABOVE60 mL/min (>60); GLUCOSE FASTING 277 mg/dL (70-110); POTASSIUM 3.7 mmol/L (3.5-5.1); SODIUM 135 mmol/L (135-145)
[2016-04-18 03:09] LABS: BASOPHIL# 0.1 X10e3 (0-0.3); BASOPHIL% 0.5 % (0-2.5); EOSINOPHIL# 0.1 X10e3 (0-0.7); EOSINOPHIL% 0.4 % (0.0-7.0); HEMOGLOBIN 10.5 gm/dL (13.0-16.0); LYMPHOCYTE% 12.6 % (17.0-45.0); MEAN CELL VOLUME 74.7 FL (83-96); MEAN CORPUSCULAR HEMOGLOBIN 23.9 PG (28-34); MEAN CORPUSCULAR HGB CONC 31.9 g/dL (30-36); MEAN PLATELET VOLUME 9.8 FL (6.5-11.5); MONOCYTE# 1.7 X10e3 (0-1.0); MONOCYTE% 10.8 % (3.0-12.0); NEUTROPHIL# 11.9 X10e3 (1.5-7.1); NEUTROPHIL% 75.7 % (40-75); PLATELET COUNT 208 X10e3 (140-420); RED BLOOD COUNT 4.42 X10e (3.90-5.60); RED CELL DISTRIBUTION WIDTH 16.3 % (11.0-15.5); WHITE BLOOD COUNT 15.7 X10e3 (4.0-10.5)
[2016-04-18 03:10] LABS: DIFF IND NO
[2016-04-18 03:34] LABS: BLOOD UREA NITROGEN 10 mg/dL (9-23); BUN/CREATININE RATIO 14.28; CALCIUM SERUM 8.3 mg/dL (8.4-10.2); CARBON DIOXIDE 24 mmol/L (22-31); CHLORIDE 104 mmol/L (100-111); CREATININE SERUM 0.7 mg/dL (0.6-1.4); GLOM FILT RATE Estimated ABOVE60 mL/min (>60); GLUCOSE FASTING 261 mg/dL (70-110); POTASSIUM 3.8 mmol/L (3.5-5.1); SODIUM 131 mmol/L (135-145)
[2016-04-19 02:55] LABS: BLOOD UREA NITROGEN 9 mg/dL (9-23); BUN/CREATININE RATIO 12.85; CALCIUM SERUM 8.4 mg/dL (8.4-10.2); CARBON DIOXIDE 28 mmol/L (22-31); CHLORIDE 107 mmol/L (100-111); CREATININE SERUM 0.7 mg/dL (0.6-1.4); GLOM FILT RATE Estimated ABOVE60 mL/min (>60); GLUCOSE FASTING 104 mg/dL (70-110); POTASSIUM 4.5 mmol/L (3.5-5.1); SODIUM 138 mmol/L (135-145)
[2016-04-19 03:32] LABS: BASOPHIL# 0.1 X10e3 (0-0.3); BASOPHIL% 0.3 % (0-2.5); EOSINOPHIL# 0.2 X10e3 (0-0.7); EOSINOPHIL% 0.9 % (0.0-7.0); HEMATOCRIT 31.3 % (38.0-50.0); HEMOGLOBIN 9.8 gm/dL (13.0-16.0); LYMPHOCYTE# 2.4 X10e3 (1.0-3.5); LYMPHOCYTE% 13.7 % (17.0-45.0); MEAN CELL VOLUME 75.4 FL (83-96); MEAN CORPUSCULAR HEMOGLOBIN 23.7 PG (28-34); MEAN CORPUSCULAR HGB CONC 31.4 g/dL (30-36); MEAN PLATELET VOLUME 9.9 FL (6.5-11.5); MONOCYTE# 2.2 X10e3 (0-1.0); MONOCYTE% 12.6 % (3.0-12.0); NEUTROPHIL# 12.9 X10e3 (1.5-7.1); NEUTROPHIL% 72.5 % (40-75); PLATELET COUNT 196 X10e3 (140-420); RED BLOOD COUNT 4.15 X10e (3.90-5.60); RED CELL DISTRIBUTION WIDTH 16.2 % (11.0-15.5); WHITE BLOOD COUNT 17.8 X10e3 (4.0-10.5)
[2016-04-19 03:33] LABS: DIFF IND NO
[2016-04-20 03:38] LABS: BASOPHIL# 0.1 X10e3 (0-0.3); BASOPHIL% 0.5 % (0-2.5); EOSINOPHIL# 0.3 X10e3 (0-0.7); EOSINOPHIL% 1.3 % (0.0-7.0); HEMATOCRIT 33.5 % (38.0-50.0); HEMOGLOBIN 10.4 gm/dL (13.0-16.0); LYMPHOCYTE# 3.6 X10e3 (1.0-3.5); LYMPHOCYTE% 14.4 % (17.0-45.0); MEAN CELL VOLUME 76.4 FL (83-96); MEAN CORPUSCULAR HEMOGLOBIN 23.8 PG (28-34); MEAN CORPUSCULAR HGB CONC 31.1 g/dL (30-36); MEAN PLATELET VOLUME 9.9 FL (6.5-11.5); MONOCYTE# 2.8 X10e3 (0-1.0); MONOCYTE% 11.2 % (3.0-12.0); NEUTROPHIL# 18.1 X10e3 (1.5-7.1); NEUTROPHIL% 72.6 % (40-75); PLATELET COUNT 228 X10e3 (140-420); RED BLOOD COUNT 4.38 X10e (3.90-5.60); RED CELL DISTRIBUTION WIDTH 16.1 % (11.0-15.5); WHITE BLOOD COUNT 24.9 X10e3 (4.0-10.5)
[2016-04-20 03:39] LABS: DIFF IND YES
[2016-04-20 03:51] LABS: BLOOD UREA NITROGEN 9 mg/dL (9-23); CALCIUM SERUM 8.8 mg/dL (8.4-10.2); CARBON DIOXIDE 28 mmol/L (22-31); CHLORIDE 99 mmol/L (100-111); CREATININE SERUM 0.9 mg/dL (0.6-1.4); GLOM FILT RATE Estimated ABOVE60 mL/min (>60); GLUCOSE FASTING 150 mg/dL (70-110); POTASSIUM 3.5 mmol/L (3.5-5.1); SODIUM 136 mmol/L (135-145)
[2016-04-20 03:55] LABS: ANISOCYTOSIS SL; MICROCYTOSIS MOD; PLATELET ESTIMATE NORMAL (NORMAL)
[2016-04-20 16:55] LABS: URINE APPEARANCE CLEAR; URINE BILIRUBIN NEG (NEG); URINE BLOOD NEG (NEG); URINE COLOR YELLOW; URINE GLUCOSE NEG (NEG); URINE KETONE NEG (NEG); URINE LEUKOCYTE ESTERASE NEG (NEG); URINE NITRATE NEG (NEG); URINE PH 5.5 (5-8); URINE PROTEIN TRACE (NEG); URINE SPECIFIC GRAVITY 1.008 (1.003-1.035)
[2016-04-20 17:01] LABS: CULTURE INDICATED? NO
[2016-04-21 02:33] LABS: BASOPHIL% 0.2 % (0-2.5); EOSINOPHIL# 0.2 X10e3 (0-0.7); EOSINOPHIL% 0.9 % (0.0-7.0); HEMATOCRIT 29.1 % (38.0-50.0); LYMPHOCYTE# 1.4 X10e3 (1.0-3.5); LYMPHOCYTE% 6.9 % (17.0-45.0); MEAN CELL VOLUME 75.2 FL (83-96); MEAN CORPUSCULAR HEMOGLOBIN 23.3 PG (28-34); MEAN PLATELET VOLUME 9.6 FL (6.5-11.5); MONOCYTE# 1.9 X10e3 (0-1.0); MONOCYTE% 9.3 % (3.0-12.0); NEUTROPHIL% 82.7 % (40-75); PLATELET COUNT 196 X10e3 (140-420); RED BLOOD COUNT 3.87 X10e (3.90-5.60); RED CELL DISTRIBUTION WIDTH 16.2 % (11.0-15.5); WHITE BLOOD COUNT 20.6 X10e3 (4.0-10.5)
[2016-04-21 02:37] LABS: DIFF IND NO
[2016-04-21 02:59] LABS: CALCIUM SERUM 8.4 mg/dL (8.4-10.2); CREATININE SERUM 1.5 mg/dL (0.6-1.4)
[2016-04-22 03:56] LABS: HEMATOCRIT 26.8 % (38.0-50.0); HEMOGLOBIN 8.3 gm/dL (13.0-16.0); MEAN CELL VOLUME 75.2 FL (83-96); MEAN CORPUSCULAR HEMOGLOBIN 23.2 PG (28-34); MEAN CORPUSCULAR HGB CONC 30.8 g/dL (30-36); MEAN PLATELET VOLUME 9.7 FL (6.5-11.5); RED BLOOD COUNT 3.56 X10e (3.90-5.60); RED CELL DISTRIBUTION WIDTH 16.4 % (11.0-15.5); WHITE BLOOD COUNT 19.7 X10e3 (4.0-10.5)
[2016-04-22 04:28] LABS: BUN/CREATININE RATIO 8.23; CALCIUM SERUM 8.6 mg/dL (8.4-10.2); CREATININE SERUM 1.7 mg/dL (0.6-1.4); POTASSIUM 4.4 mmol/L (3.5-5.1)
[2016-04-23 03:59] LABS: BASOPHIL# 0.1 X10e3 (0-0.3); BASOPHIL% 0.3 % (0-2.5); EOSINOPHIL# 0.6 X10e3 (0-0.7); EOSINOPHIL% 3.5 % (0.0-7.0); HEMATOCRIT 26.5 % (38.0-50.0); HEMOGLOBIN 8.4 gm/dL (13.0-16.0); LYMPHOCYTE% 11.8 % (17.0-45.0); MEAN CELL VOLUME 75.3 FL (83-96); MEAN CORPUSCULAR HEMOGLOBIN 23.9 PG (28-34); MEAN CORPUSCULAR HGB CONC 31.8 g/dL (30-36); MEAN PLATELET VOLUME 9.5 FL (6.5-11.5); MONOCYTE# 1.8 X10e3 (0-1.0); MONOCYTE% 10.3 % (3.0-12.0); NEUTROPHIL# 12.6 X10e3 (1.5-7.1); NEUTROPHIL% 74.1 % (40-75); PLATELET COUNT 180 X10e3 (140-420); RED BLOOD COUNT 3.51 X10e (3.90-5.60); RED CELL DISTRIBUTION WIDTH 16.5 % (11.0-15.5)
[2016-04-23 04:00] LABS: DIFF IND YES
[2016-04-23 04:18] LABS: ANISOCYTOSIS SL; HYPERSEGMENTED POLYS PRESENT; MICROCYTOSIS SL; PLATELET ESTIMATE DECREASED (NORMAL); SMUDGE CELLS 5 /100
[2016-04-23 04:22] LABS: BUN/CREATININE RATIO 7.89; CALCIUM SERUM 8.1 mg/dL (8.4-10.2); CREATININE SERUM 1.9 mg/dL (0.6-1.4); GLOM FILT RATE Estimated 39.6 mL/min (>60); POTASSIUM 4.3 mmol/L (3.5-5.1)
[2016-04-24 03:57] LABS: HEMATOCRIT 25.6 % (38.0-50.0); HEMOGLOBIN 8.1 gm/dL (13.0-16.0); MEAN CELL VOLUME 75.2 FL (83-96); MEAN CORPUSCULAR HEMOGLOBIN 23.7 PG (28-34); MEAN CORPUSCULAR HGB CONC 31.4 g/dL (30-36); MEAN PLATELET VOLUME 9.7 FL (6.5-11.5); RED BLOOD COUNT 3.41 X10e (3.90-5.60); RED CELL DISTRIBUTION WIDTH 16.7 % (11.0-15.5); WHITE BLOOD COUNT 15.2 X10e3 (4.0-10.5)
[2016-04-24 04:20] LABS: BUN/CREATININE RATIO 8.42; CREATININE SERUM 1.9 mg/dL (0.6-1.4); GLOM FILT RATE Estimated 39.6 mL/min (>60); POTASSIUM 4.1 mmol/L (3.5-5.1)
[2016-04-24 19:02] LABS: URINE SOURCE CLEAN CATCH
[2016-04-24 19:11] LABS: URINE APPEARANCE CLEAR; URINE BILIRUBIN NEG (NEG); URINE BLOOD NEG (NEG); URINE COLOR YELLOW; URINE GLUCOSE NEG (NEG); URINE KETONE NEG (NEG); URINE LEUKOCYTE ESTERASE NEG (NEG); URINE NITRATE NEG (NEG); URINE PH 5.5 (5-8); URINE PROTEIN NEG (NEG); URINE SPECIFIC GRAVITY 1.007 (1.003-1.035)
[2016-04-24 19:16] LABS: CREATININE,RANDOM URINE 34 mg/dL; TOTAL PROTEIN,RANDOM URINE <10 mg/dl (<10)
[2016-04-25 03:52] LABS: HEMATOCRIT 21.4 % (38.0-50.0); MEAN CELL VOLUME 75.8 FL (83-96); MEAN CORPUSCULAR HGB CONC 30.4 g/dL (30-36); MEAN PLATELET VOLUME 9.3 FL (6.5-11.5); RED BLOOD COUNT 2.83 X10e (3.90-5.60); RED CELL DISTRIBUTION WIDTH 16.6 % (11.0-15.5); WHITE BLOOD COUNT 13.1 X10e3 (4.0-10.5)
[2016-04-25 04:02] LABS: HEMOGLOBIN 6.5 gm/dL (13.0-16.0)
[2016-04-25 04:09] LABS: BUN/CREATININE RATIO 8.12; CALCIUM SERUM 6.7 mg/dL (8.4-10.2); CREATININE SERUM 1.6 mg/dL (0.6-1.4); GLOM FILT RATE Estimated 48.3 mL/min (>60); POTASSIUM 3.4 mmol/L (3.5-5.1)
[2016-04-26 02:57] LABS: HEMATOCRIT 28.3 % (38.0-50.0); MEAN CORPUSCULAR HEMOGLOBIN 24.7 PG (28-34); RED BLOOD COUNT 3.67 X10e (3.90-5.60); RED CELL DISTRIBUTION WIDTH 17.1 % (11.0-15.5); WHITE BLOOD COUNT 13.1 X10e3 (4.0-10.5)
[2016-04-26 02:59] LABS: HEMOGLOBIN 9.1 gm/dL (13.0-16.0)
[2016-04-26 03:20] LABS: BUN/CREATININE RATIO 8.5; CALCIUM SERUM 7.9 mg/dL (8.4-10.2); GLOM FILT RATE Estimated 37.3 mL/min (>60); POTASSIUM 4.4 mmol/L (3.5-5.1)
[2016-04-27 04:36] LABS: BUN/CREATININE RATIO 9.41; CALCIUM SERUM 8.1 mg/dL (8.4-10.2); CREATININE SERUM 1.7 mg/dL (0.6-1.4); POTASSIUM 4.4 mmol/L (3.5-5.1)
[2016-04-28 03:57] LABS: BASOPHIL# 0.1 X10e3 (0-0.3); BASOPHIL% 0.7 % (0-2.5); EOSINOPHIL# 0.4 X10e3 (0-0.7); EOSINOPHIL% 4.1 % (0.0-7.0); HEMATOCRIT 28.9 % (38.0-50.0); HEMOGLOBIN 8.9 gm/dL (13.0-16.0); LYMPHOCYTE# 1.7 X10e3 (1.0-3.5); LYMPHOCYTE% 17.1 % (17.0-45.0); MEAN CELL VOLUME 77.4 FL (83-96); MEAN PLATELET VOLUME 9.8 FL (6.5-11.5); MONOCYTE# 0.9 X10e3 (0-1.0); MONOCYTE% 9.3 % (3.0-12.0); NEUTROPHIL# 6.9 X10e3 (1.5-7.1); NEUTROPHIL% 68.8 % (40-75); PLATELET COUNT 227 X10e3 (140-420); RED BLOOD COUNT 3.73 X10e (3.90-5.60); RED CELL DISTRIBUTION WIDTH 17.1 % (11.0-15.5)
[2016-04-28 03:58] LABS: DIFF IND NO
[2016-04-28 04:11] LABS: BUN/CREATININE RATIO 9.41; CALCIUM SERUM 8.2 mg/dL (8.4-10.2); CREATININE SERUM 1.7 mg/dL (0.6-1.4); POTASSIUM 5.4 mmol/L (3.5-5.1)
[2016-04-28 11:30] LABS: BUN/CREATININE RATIO 9.33; CREATININE SERUM 1.5 mg/dL (0.6-1.4)
[2016-04-28 11:31] LABS: POTASSIUM 3.8 mmol/L (3.5-5.1)
[2016-04-29 03:56] LABS: BASOPHIL# 0.1 X10e3 (0-0.3); BASOPHIL% 0.7 % (0-2.5); DIFF IND NO; EOSINOPHIL# 0.3 X10e3 (0-0.7); EOSINOPHIL% 2.5 % (0.0-7.0); HEMATOCRIT 30.6 % (38.0-50.0); HEMOGLOBIN 9.6 gm/dL (13.0-16.0); LYMPHOCYTE# 1.4 X10e3 (1.0-3.5); MEAN CELL VOLUME 76.9 FL (83-96); MEAN CORPUSCULAR HEMOGLOBIN 24.1 PG (28-34); MEAN CORPUSCULAR HGB CONC 31.3 g/dL (30-36); MEAN PLATELET VOLUME 9.9 FL (6.5-11.5); MONOCYTE# 0.9 X10e3 (0-1.0); MONOCYTE% 7.4 % (3.0-12.0); NEUTROPHIL# 8.9 X10e3 (1.5-7.1); NEUTROPHIL% 77.4 % (40-75); PLATELET COUNT 261 X10e3 (140-420); RED BLOOD COUNT 3.99 X10e (3.90-5.60); RED CELL DISTRIBUTION WIDTH 17.9 % (11.0-15.5); WHITE BLOOD COUNT 11.5 X10e3 (4.0-10.5)
[2016-04-29 04:21] LABS: BUN/CREATININE RATIO 8.12; CALCIUM SERUM 8.4 mg/dL (8.4-10.2); CREATININE SERUM 1.6 mg/dL (0.6-1.4); GLOM FILT RATE Estimated 48.3 mL/min (>60); MAGNESIUM 2.1 mg/dL (1.6-3.0); POTASSIUM 4.1 mmol/L (3.5-5.1)
[2016-04-30] MEDS ORDERED: PERCOCET 5-3251 TAB PO (11:17)
[2016-04-30] MEDS ORDERED: ACETAMINOPHEN PO (11:20)
[2016-04-30] MEDS ORDERED: MIRALAX17 GM PO (11:21)
[2016-04-30] MEDS ORDERED: METHADOSE10 MG PO (11:22)
[2016-04-30] MEDS ORDERED: ASPIRIN81 MG PO (11:22)
[2016-04-30] MEDS ORDERED: HUMULIN 70100 UNITS/ SUBQ (11:24)
[2016-04-30] MEDS ORDERED: DALVANCE500 MG IM/IV (11:43)
[2016-04-30] MEDS ORDERED: DALVANCE500 MG IV (11:44)
== END 2016-04-30 12:22 | disposition home or self-care (01) | DRG 617 ==
LOC: CED 05:16 → CEDOF 06:40 → C4C 11:18 → CEDOF 04-23 06:55 → C4C 04-23 06:56
PROVIDERS: Anesthesiology; Emergency Medicine; Internal Medicine; Internal Medicine Infectious Disease; Internal Medicine Nephrology; Nurse Practitioner Family; Orthopaedic Surgery
PROC: 0JBQ0ZZ Excision of Right Foot Subcutaneous Tissue and Fascia, Open Approach (ICD-10-PCS; 2016-04-17)
PROC: 0QTN0ZZ Resection of Right Metatarsal, Open Approach (ICD-10-PCS; principal; 2016-04-17 12:30)
PROC: 0S9M0ZZ Drainage of Right Metatarsal-Phalangeal Joint, Open Approach (ICD-10-PCS; 2016-04-20)
PROC: 02HV33Z Insertion of Infusion Device into Superior Vena Cava, Percutaneous Approach (ICD-10-PCS; 2016-04-21)
PROC: B518YZA Fluoroscopy of Superior Vena Cava using Other Contrast, Guidance (ICD-10-PCS; 2016-04-21)
PROC: B548ZZA Ultrasonography of Superior Vena Cava, Guidance (ICD-10-PCS; 2016-04-21)
PROC: 0Y6M0Z9 Detachment at Right Foot, Partial 1st Ray, Open Approach (ICD-10-PCS; 2016-04-23)
PROC: 0Y6M0ZB Detachment at Right Foot, Partial 2nd Ray, Open Approach (ICD-10-PCS; 2016-04-23)
PROC: 0Y6M0ZC Detachment at Right Foot, Partial 3rd Ray, Open Approach (ICD-10-PCS; 2016-04-23)
PROC: 0Y6M0ZD Detachment at Right Foot, Partial 4th Ray, Open Approach (ICD-10-PCS; 2016-04-23)
PROC: 0Y6M0ZF Detachment at Right Foot, Partial 5th Ray, Open Approach (ICD-10-PCS; 2016-04-23)
PROC: 30233N1 Transfusion of Nonautologous Red Blood Cells into Peripheral Vein, Percutaneous Approach (ICD-10-PCS; 2016-04-25)
PROC: 0L8N3ZZ Division of Right Lower Leg Tendon, Percutaneous Approach (ICD-10-PCS; 2016-04-28)
DX: E11.621 Type 2 diabetes mellitus with foot ulcer (principal); L03.115 Cellulitis of right lower limb; N17.0 Acute kidney failure with tubular necrosis; E11.21 Type 2 diabetes mellitus with diabetic nephropathy; E11.22 Type 2 diabetes mellitus with diabetic chronic kidney disease; D62 Acute posthemorrhagic anemia; M86.8X7 Other osteomyelitis, ankle and foot; E11.52 Type 2 diabetes mellitus with diabetic peripheral angiopathy with gangrene; L97.519 Non-pressure chronic ulcer of other part of right foot with unspecified severity; Z79.4 Long term (current) use of insulin; Z91.19 Patient's noncompliance with other medical treatment and regimen; G89.4 Chronic pain syndrome; E78.5 Hyperlipidemia, unspecified; I25.10 Atherosclerotic heart disease of native coronary artery without angina pectoris; Z95.1 Presence of aortocoronary bypass graft; Z79.82 Long term (current) use of aspirin; Z90.49 Acquired absence of other specified parts of digestive tract; I12.9 Hypertensive chronic kidney disease with stage 1 through stage 4 chronic kidney disease, or unspecified chronic kidney disease; M65.871 Other synovitis and tenosynovitis, right ankle and foot; B95.62 Methicillin resistant Staphylococcus aureus infection as the cause of diseases classified elsewhere; D72.829 Elevated white blood cell count, unspecified; D63.1 Anemia in chronic kidney disease; E11.69 Type 2 diabetes mellitus with other specified complication; N18.3 Chronic kidney disease, stage 3 (moderate)
CPT/HCPCS: 36415; 71010; 71020; 73630; 73720; 74176; 76770; 76937; 77001; 80048; 80076; 80202; 81003; 82274; 82553; 82570; 82947; 83036; 83605; 83690; 83735; 84156; 84443; 84484; 85025; 85027; 85652; 86140; 86850; 86900; 86901; 86923; 87040; 87070; 87075; 87077; 87186; 87205; 87804; 88307; 88311; 93005; 93971; 96374; 96375; 97110; 97116; 97162; 97167; 97530; 97535; 99285; A9577; C1725; C1751; C9113; G8978-GP; G8979-GP; G8980-GP; G8987-GO; G8988-GO; J0360; J0712; J0885; J1170; J1650; J1815; J1940; J2250; J2270; J2405; J2543; J2550; J2765; J2997; J3010; J3370; P9016; Q9967

== ENCOUNTER → 2016-04-30 | Outpatient (CLI) | payer MEDICARE ==
[~2016-04-30] MED LIST changes: +ACETAMINOPHEN PO; +ALDACTONE25 MG PO; +ASPIRIN81 MG PO; +CARDIZEM CD120 M1 PO; +CATAPRES-TTS-10.1 MG TOP; +DALVANCE500 MG IM/IV; +DALVANCE500 MG IV; +GLUCOPHAGE XR500 MG PO; +HUMULIN 70100 UNITS/ SUBQ; +HYDRALAZINE HC100 MG PO; +KCL PO; +LASIX PO; +LOPRESSOR PO; +MIRALAX17 GM PO; +PERCOCET 5-3251 TAB PO; +ZYVOX600 MG PO
== END | disposition home or self-care (01) ==
LOC: CSSDAY 12:23
DX: L97.519 Non-pressure chronic ulcer of other part of right foot with unspecified severity (principal); B95.62 Methicillin resistant Staphylococcus aureus infection as the cause of diseases classified elsewhere; Z79.2 Long term (current) use of antibiotics
CPT/HCPCS: 96365; J0875

== ENCOUNTER 2016-05-04 17:33 | Inpatient (IN) | payer MEDICARE ==
--- NOTE | ~2016-05-04 | OR ---
Unit #: [id number] #: [id number] Patient: DEBRA MARROQUIN [id number] [address] [address] [id number] I MR#: [id number] NAME: DEBRA MARROQUIN ROOM: [facility] Date of Procedure: Admission Date: 05/04/2016 Surgeon: Abhijeet Smith M.D. : 1960 Attending Physician: Yemi Mathur M.D. Primary Care Physician: Ricardo Grimaldo M.D. PROCEDURE OPERATIVE NOTE PROCEDURE Diagnostic bronchoscopy and bronchoalveolar lavage. INDICATION Pneumonia. PRE-PROCEDURE DIAGNOSIS Pneumonia. POST PROCEDURE DIAGNOSIS Pneumonia. DETAILS OF THE PROCEDURE After taking consent from the patient explaining the risks and benefits, the patient was placed in a proper position. Bronchoscope introduced through the endotracheal tube which was sitting well above the lorri. We examined right upper, right middle, right lower lobe, left upper lobe, lingula and left lower lobe. No endobronchial lesion was found. There were thick, mucoid secretions which were therapeutically suctioned. We did a bronchoalveolar lavage in the right middle lobe are with 120 mL of saline in and 40 mL retrieved. Patient tolerated the procedure very well. No complications happened. Dictated by... Nicci Valdovinos/silvino TD: 05/07/2016 06:54 JOB #: [id number] Unit #: [id number] #: [id number] Patient: DEBAR MARROQUIN PROCEDURE OPERATIVE NOTE X Abhijeet Smith MD PROCEDURE OPERATIVE NOTE
--- NOTE | ~2016-05-04 | CO ---
Unit #: [id number] #: [id number] Patient: DEBRA MARROQUIN [id number] [address] [place], [place] [address] [id number] MR#: [id number] NAME: DEBRA MARROQUIN [facility] Age: 55 Sex: M Admission Date: 05/04/2016 : 1960 Attending Physician: Yemi Mathur M.D. Primary Care Physician: Ricardo Grimaldo M.D. Consultation Date: 05/05/2016 CONSULTATION REPORT JOB NOTE: DISCREPANCY IN CABG YEAR IN HPI. REASON FOR CONSULTATION Elevated creatinine level. HISTORY OF PRESENT ILLNESS The patient is a 55 years old white male with known history of hypertension, type 2 diabetes, status post right foot surgery for osteomyelitis with MRSA. The patient comes in with cough with expectoration and admitted for pneumonia, started on antibiotics. The patient with a baseline creatinine of 0.7 in 03/2016 and had an MORENITA attributed to hemodynamic related increase in creatinine exacerbated by lisinopril. His discharge creatinine was 1.6. He comes back in with a creatinine level of 1.5 now, edema is much improved. The patient previously had coronary artery bypass graft in 2009 and ejection fraction of 40% to 45% in 2013. PAST MEDICAL HISTORY Significant for CABG x1 in 2009, 2013 echocardiogram with an ejection fraction 40% to 45%, type 2 diabetes, hypertension, hyperlipidemia, and chronic kidney disease likely stage 3 secondary to diabetic nephropathy and hypertensive nephrosclerosis. I suspect his baseline creatinine is around 1.5 with the patient's euvolemic status. The creatinine of 0.8 previously was likely secondary to increased ECF and hypervolemia. The patient also has history of for portal hypertensive gastropathy. History of stroke/CVA in 2011. History of esophagitis and duodenitis. PAST SURGICAL HISTORY Significant for TMA right foot for MRSA osteomyelitis, CABG in 2009 x4, history of cholecystectomy, status post back surgery. ALLERGIES No known drug allergies. SOCIAL HISTORY The patient lives at home with his spouse. Does not smoke. Does not drink. FAMILY HISTORY Unremarkable for end-stage renal disease. REVIEW OF SYSTEMS CVS: As above. RESPIRATORY: As above. Unit #: [id number] #: [id number] Patient: DEBRA MARROQUIN GI: No diarrhea. No vomiting. : No hematuria. No dysuria. MEDICATIONS Include Lopressor 25 mg b.i.d., Norvasc 2.5 mg b.i.d., methadone 30 mg, furosemide 20 mg b.i.d., Klor-Con 20 mEq daily, Zosyn IV, and Lovenox. PHYSICAL EXAMINATION GENERAL: The patient is awake, alert, and oriented. VITAL SIGNS: The temperature is 97.6, heart rate is 71/minute, blood pressure is 166/77. HEENT: Head is atraumatic. Extraocular movements are intact. Sclerae are anicteric. NECK: Supple. There is no elevation of JVD. CHEST: Clear. Air entry is equal bilaterally. Breathing is vesicular in nature. HEART: S1, S2 audible. There is no S3, no S4. ABDOMEN: Soft. There is no organomegaly. No guarding. No rigidity. No rebound tenderness. EXTREMITIES: Right foot dressing. MEDICAL RADIATION DOSIMETRIST: Motor system is intact. Cerebellar system is intact. DIAGNOSTIC STUDIES LABORATORY RESULTS: Sodium is 131, potassium is 4.1, chloride 102, CO2 of 25, BUN 28, creatinine 1.5, calcium is 7.6, admission glucose is 463. Procalcitonin is 0.69. WBC 11.8, hemoglobin is 8.2, hematocrit 26.6, and platelets 147. IMPRESSION 1. Chronic kidney disease, stage 3. Renal function, I suspect this is his new baseline secondary to hypertensive nephrosclerosis and diabetic nephropathy. 2. Hypertension. Add clonidine as needed. 3. Status post right transmetatarsal amputation for methicillin-resistant Staphylococcus aureus osteomyelitis. 4. Pneumonia. Defer antibiotics to Critical Care and Pulmonary Medicine. 5. Gently diurese to keep the patient on negative side. We will follow the patient with you. Dictated by... Nicci Gonzalez TD: 05/07/2016 03:45 JOB #: [id number] CONSULTATION REPORT X Cade Cain MD CONSULTATION REPORT
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
--- NOTE | ~2016-05-04 | CR72 ---
[facility] A Service of [facility] & [facility] RADIOLOGY TEXT RESULTS PATIENT: DEBRA MARROQUIN LOCATION: A 241-01 : [birth year] UNIT #: [id number] AGE: [address]: Yemi Mathur MD SEX: M ORDER DR: [id number] [facility] [address] [facility]. [place], [place] [address] [id number] I MR#: [id number] Acc #: [id number] NAME: DEBRA MARROQUIN : 1960 SEX: M STUDY DATE/TIME: 05/09/2016 3:31 UNIT: [facility] ROOM: [facility] STUDY DESCRIPTION: CR Chest Single View Portable Attending Physician: Yemi Mathur M.D. Ordering Physician: Abhijeet Smith M.D. Primary Care Physician: Ricardo Grimaldo M.D. MEDICAL IMAGING REPORT This report is preliminary unless electronic signature is present EXAM AP portable chest 05/09/2016. HISTORY Respiratory failure. Follow up cardiopulmonary status. TECHNIQUE AP portable chest x-ray. FINDINGS Examination is stable since yesterday following extubation. Mild patchy infiltrate in the right mid and lower lung. Left lung clear. Cardiomegaly is stable, and pulmonary vascularity is within normal limits. No visible pleural effusion. PICC in good position. IMPRESSION Stable portable chest radiograph following extubation since yesterday. Dictated by... Isaac Gage M.D. THIS IS AN ELECTRONICALLY VERIFIED REPORT Isaac Gage M.D. at 05/10/2016 5:30 AM BRODY/horacio TD: 05/10/2016 02:26 JOB #: [id number] MEDICAL IMAGING REPORT COPY
--- NOTE | ~2016-05-04 | CR7 ---
[facility] A Service of [facility] & [facility] RADIOLOGY TEXT RESULTS PATIENT: DEBRA MARROQUIN LOCATION: [address] : [birth year] UNIT #: [id number] AGE: [address]: Yemi Mathur MD SEX: M ORDER DR: [id number] [facility] [address] [facility]. [place], [place] [address] [id number] I MR#: [id number] Acc #: [id number] NAME: DEBRA MARROQUIN : 1960 SEX: M STUDY DATE/TIME: 05/06/2016 17:49 UNIT: [facility] ROOM: [facility] STUDY DESCRIPTION: CR Abdomen Single AP View Attending Physician: Yemi Mathur M.D. Ordering Physician: Abhijeet Smith M.D. Primary Care Physician: Ricardo Grimaldo M.D. MEDICAL IMAGING REPORT This report is preliminary unless electronic signature is present EXAM Portable abdomen HISTORY Dobbhoff tube placement. FINDINGS Portable view of the upper abdomen/lower chest demonstrates the weighted tip of a Dobbhoff feeding tube well below the GE junction with the distal tip projecting in the expected position of the distal stomach first portion of the duodenum. There is at least 32 cm catheter below the GE junction. This should represent satisfactory initial placement, however, more optimal positioning of the catheter beyond the ligament of Treitz may require additional advancement at least 10-15 cm. Normal nonobstructive bowel gas pattern. Surgical clips in the right upper quadrant suggest prior cholecystectomy. Extensive bilateral alveolar infiltrates. Dictated by... Luis Enrique Eddy M.D. THIS IS AN ELECTRONICALLY VERIFIED REPORT Luis Enrique Eddy M.D. at 05/07/2016 8:42 PM KADE/leta TD: 05/07/2016 09:11 JOB #: [id number] MEDICAL IMAGING REPORT COPY
--- NOTE | ~2016-05-04 | DS ---
Unit #: [id number] #: [id number] Patient: DEBRA MARROQUIN [id number] [address] [place], [place] [address] [id number] I MR#: [id number] NAME: DEBRA MARROQUIN ROOM: 241 Age: 55 Sex: M Admission Date: 05/04/2016 : 1960 Discharge Date: 05/11/2016 Attending Physician: Lauren Salazar M.D. Primary Care Physician: Ricardo Grimaldo M.D. DISCHARGE SUMMARY PRIMARY CARE PROVIDER Ricardo Grimaldo M.D. PRINCIPAL DIAGNOSES 1. Acute hypoxic respiratory failure, multifactorial. 2. Acute diastolic congestive heart failure, ejection fraction 50% to 55%. 3. Right-sided pneumonia. 4. Acute kidney injury on chronic kidney disease stage 3. Baseline creatinine 1.4 and discharge creatinine 1.4. 5. Left renal mass. 6. Hypertension, controlled. 7. Pulmonary hypertension. 8. Diabetes mellitus type 2, insulin requiring, under control, with hemoglobin A1c of 9.2. 9. Acute respiratory distress syndrome, now resolved. 10. Recent right foot osteomyelitis with Methicillin-resistant Staphylococcus aureus, status post transmetatarsal amputation. 11. Hypokalemia. 12. Microcytic anemia. 13. Coronary artery disease. 14. Chronic pain syndrome, maintained on methadone. 15. Hyperlipidemia. 16. Osteoarthritis. CONSULTANTS Dr. Sanders, Cardiology; Dr. Smith,a Pulmonology; Dr. Cain, Nephrology; Dr. Gil, Urology; Dr. De La Rosa, Infectious Disease, Dr. Flowers, Orthopedics. PROCEDURES PERFORMED 1. Bronchoscopy on 05/04/2016 without evidence of endobronchial lesions. Thick mucoid secretions were noted. 2. 2-dimensional echocardiogram on 05/05/2016 with ejection fraction of 50% to 55%. Mildly dilated left atrium noted, mildly enlarged right atrium and right ventricle noted, mild to moderate mitral regurgitation, [id number] tricuspid regurgitation noted, right ventricular systolic pressure elevated at 52 mmHg. 3. Lower extremity venous Doppler, which was negative for DVT. Chest x-ray on 05/04/2016 with bilateral diffuse interstitial and alveolar infiltrates noted. 4. V/Q lung scan which was intermediate probability for PE. CT of the chest without contrast on 05/06/2016 with diffuse interstitial and alveolar airspace opacities and associated bilateral pleural effusions. Unit #: [id number] #: [id number] Patient: DEBRA MARROQUIN Hyperdense mass in the mid to left lower kidney as noted. CLINICAL HISTORY AND HOSPITAL Mr. Marroquin is a 55-year-old male, who presents to the emergency department after some cough and congestion. In the emergency department, he was hypoxic. Chest x-ray was concerning for pneumonia and the patient was subsequently admitted. Dr. Smith was consulted. The patient unfortunately developed significantly worsening hypoxia and ultimately required intubation and transferred to the ICU. He underwent bronchoscopy without findings of endobronchial lesion. Sputum cultures were negative. He was placed on empiric broad-spectrum antibiotics under the care of Dr. De La Rosa. These have now been tapered to oral Zyvox, which will treat both the patient's underlying osteomyelitis and his pneumonia. Fortunately, with aggressive care of both pneumonia and his congestive heart failure, he has been extubated now, he is not having any evidence of hypoxia. Due to the patient's hypoxia, 2-dimensional echocardiogram was done, revealing some congestive heart failure. Cardiology was consulted. The patient was placed on aggressive diuresis with his poor renal function. Cardiac status is now clinically stable and he will follow up with Cardiology as an outpatient. During workup of pneumonia, the patient had a CT scan, which revealed a left renal mass for which Dr. Gil was consulted. Plan is for the patient to follow up with Dr. Gil in 1 month as an outpatient. He will have an MRI of the mass to further evaluate and likely will require biopsy. Nephrology was consulted given the patient's elevated creatinine. Creatinine throughout hospitalization has been stable at approximately 1.5 to 1.4 and this appears to be patient's baseline. I will note review of records indicate creatinine has been somewhere around 0.8. This will be followed up by Nephrology as an outpatient. Today, the patient is doing well. He is off oxygen. He is ambulating and he will be discharged home. DISCHARGE CONDITION Stable. DISCHARGE STATUS Discharged to home. DISCHARGE MEDICATIONS Zyvox 600 mg p.o. b.i.d. for another 4 days, this is stopped after dose on 05/15/2016; Norvasc 10 mg half a tablet b.i.d.; Cardizem CD 120 mg daily; metoprolol tartrate 50 mg half a tablet b.i.d.; MiraLAX 17 g p.o. daily p.r.n. for constipation; Lasix 40 mg daily; Lipitor 20 mg at bedtime; Catapres patch 0.1 mg topically on Wednesday; hydralazine 100 mg p.o. t.i.d.; Humulin 70/30 25 units daily; aspirin 81 mg daily; methadone 30 mg at 5:00 a.m. and 11:00 a.m. and 20 mg at 5:00 p.m. and 11:00 p.m.; spironolactone 25 mg daily. DISCHARGE INSTRUCTIONS The patient was instructed to follow heart healthy, low salt, diabetic diet. He can increase his activity as tolerated. We will continue Accu-Cheks as he was doing at home previously. He should continue to be weightbearing of the right lower extremity as instructed by Orthopedics. Unit #: [id number] #: [id number] Patient: CARADEBRA FOLLOWUP The patient will follow up with Dr. Flowers in approximately 7 days. The patient is to follow up with Dr. Cain of Nephrology in 1 week. He will follow up Dr. Smith in 2 weeks. He will follow up with Dr. Sanders as instructed, appointment will be made prior to discharge. Time spent on discharge 40 minutes. Dictated by... Lauren Salazar M.D. WENDY/jennifer TD: 05/12/2016 07:47 JOB #: [id number] DISCHARGE SUMMARY Page 1 of 1 X Lauren Salazar MD DISCHARGE SUMMARY
--- NOTE | ~2016-05-04 | CR6 ---
[facility] A Service of [facility] & [facility] RADIOLOGY TEXT RESULTS PATIENT: DEBRA MARROQUIN LOCATION: [address] : [birth year] UNIT #: [id number] AGE: [address]: Yemi Mathur MD SEX: M ORDER DR: [id number] [facility] [address] [facility]. [place], [place] [address] [id number] I MR#: [id number] Acc #: [id number] NAME: DEBRA MARROQUIN : 1960 SEX: M STUDY DATE/TIME: 05/07/2016 21:24 UNIT: [facility] ROOM: [facility] STUDY DESCRIPTION: CR Abdomen Portable Sng View Attending Physician: Yemi Mathur M.D. Ordering Physician: Yemi Mathur M.D. Primary Care Physician: Ricardo Grimaldo M.D. MEDICAL IMAGING REPORT This report is preliminary unless electronic signature is present EXAM Portable abdomen HISTORY Dobbhoff tube placement FINDINGS Portable view of the abdomen and lower chest demonstrates weighted tip of a Dobbhoff feeding tube about 12.4 cm below the GE junction most likely within the mid stomach. Further advancement of at least 10.0-15.0 cm is recommended for more optimal small bowel placement. Nonobstructive bowel gas pattern. Lung bases unremarkable. Dictated by... Luis Enrique Eddy M.D. THIS IS AN ELECTRONICALLY VERIFIED REPORT Luis Enrique Eddy M.D. at 05/08/2016 5:11 PM Esdras TD: 05/08/2016 09:26 JOB #: [id number] MEDICAL IMAGING REPORT COPY
--- NOTE | ~2016-05-04 | A ---
[facility] Nutrition Therapy DATE: 05/07/16 Patient: DEBRA MARROQUIN Physician: BERTIN [address] Room/Bed: [address], Zip: [place] [phone] Admit Date: 05/04/16 Date of : [birth year] Height: 5 9 Weight: 198 90 NUTRITIONAL ASSESSMENT: REASON: TF assessment 55 yo male admitted for SOA and ARDS PMH: DM, HTN, CAD, CKD, osteomyelitis of MRSA (R foot) Anthropometrics: HT: 5'9", WT: 90 kg (198#), BMI: 29.2 Labs: Na+ 134, K+ 3.2, Gluc 232, BUN 27, Ca++ 7.9, Alb 2.1, AST 101, ALT 168, A1c 9.2 Meds: Propofol (OFF), Pepcid, Zofran, Furosemide, novoLOG, Colace, Klor-con, Mg, KCl I/O & Bowel function: 1807/2120, LBM 05/04 Skin Integrity: Cast (R foot), scar (back, chest, abd) Edema: BLE (generalized), R hand 3+, L hand 1+ Estimated Nutrition Needs: 2250 - 2700 kcal (25-30 kcal/kg) 108 - 135 grams protein (1.2-1.5 g/kg) Assessment: Chart reviewed, events noted. Pt admitted for respiratory failure, is intubated and started on Jevity 1.2 tube feeds. Propofol is turned off and plans are in place to extubate. If pt to remain on vent or SLICING MACHINE TENDER deems pt not approriate for diet advancement, RD to recommend to change tube feeds to Glucerna 2' elevated blood sugars, PMH of DM, elevated Alc. Family in room reported pt to have no wt loss and follows a CC diet at home. Family reported no questions. RD to follow. See recommendations below. Dx: Inadequate oral intake RT current clinical condition AEB intubation, TF. Intervention: 1. Glucerna 1.5 2. d/c Jevity 1.2 Monitoring, Evaluation and Goals: 1. Enteral nutrition; provide ~80-100% of estimated needs 2. Labs; WNL: Glu, A1c, K+ 3. PO intake; tolerate diet w/no c/o n/v/d (PO>50%) Recommendations: 1. Recommend to change current enteral nutrition support to Glucerna 1.5 @20 mL/hr, advance 10 mL q 6 hrs to goal rate of 65 mL/hr. This will provide: 2340 kcal/129 g [facility] Nutrition Therapy DATE: 05/07/16 Patient: DEBRA CARA Physician: BERTIN Address: [address] [place] [address] Room/Bed: [address], Zip: [place] [address] Admit Date: 05/04/16 Date of : [birth year] Height: 5 9 Weight: 198 90 PRO/1186 mL free H2O. Add free water flushes 200 mL q 4 hrs to meet pt's current estimated fluid needs. 2. Once pt extubated, advance diet per SLICING MACHINE TENDER + CC diet. RD will f/u per protocol as pt is at a moderate nutriton risk. Respectfully, POLLY KOCH, Clinical Asst Thi Santiago MS, RD, LD Food and Nutritional Services [facility] cc: client file
--- NOTE | ~2016-05-04 | EKG ---
PATIENT: DEBRA MARROQUIN UNIT #: [id number] Ventricular Rate: 65 BPM Atrial Rate: 65 BPM P-R Interval: 154 ms QRS Duration: 92 ms Q-T Interval: 530 ms QTC Calculation(Bezet): 551 ms P [place]: 52 degrees Calculated R [place]: 75 degrees Calculated T [place]: 122 degrees Diagnosis Line: Normal sinus rhythm Diagnosis Line: Nonspecific ST and T wave abnormality Diagnosis Line: Prolonged QT Diagnosis Line: Abnormal ECG Diagnosis Line: When compared with ECG of 04-MAY-2016 15:57, Diagnosis Line: T wave inversion less evident in Lateral leads Diagnosis Line: Confirmed by MARCIN CONLEY MD ([id number]) on 05/09/2016 Diagnosis Line: 7:46:26 AM INTERPRETING MD: YAEL VALDEZ
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
--- NOTE | ~2016-05-04 | CR72 ---
[facility] A Service of [facility] & [facility] RADIOLOGY TEXT RESULTS PATIENT: DEBRA MARROQUIN LOCATION: [facility] 241 : [birth year] UNIT #: [id number] AGE: [address]: Lauren Salazar MD SEX: M ORDER DR: [id number] [facility] [address] [facility]. [place], [place] [address] [id number] I MR#: [id number] Acc #: [id number] NAME: DEBRA MARROQUIN : 1960 SEX: M STUDY DATE/TIME: 05/08/2016 5:14 UNIT: [facility] ROOM: [facility] STUDY DESCRIPTION: CR Chest Single View Portable Attending Physician: Yemi Mathur M.D. Ordering Physician: Abhijeet Smith M.D. Primary Care Physician: Ricardo Grimaldo M.D. MEDICAL IMAGING REPORT This report is preliminary unless electronic signature is present EXAM AP portable chest. DATE 05/08/2016 at 0514 HISTORY 55-year-old male with shortness of breath, ARDS, pneumonia. Shortness of breath since 05/01/2016. COMPARISON AP portable chest 05/07/2016. FINDINGS Interstitial and alveolar disease changes within both lungs appear significantly improved with some residual infiltrates remaining in the right vjx-ib-unhwv lung zone and left medial left base. Heart size is stable. Median sternotomy and CABG. Right arm approach PICC, ET tube, and Dobbhoff tube appear stable. No visible pneumothorax. IMPRESSION 1. Improved aeration within both lungs with some residual infiltrates remaining in the bilateral lung bases and right mid lung. Correlate clinically for improving pneumonia. 2. Supporting lines and tubes appear stable. No pneumothorax. 3. CABG changes. Dictated by... Farnaz Orta M.D. THIS IS AN ELECTRONICALLY VERIFIED REPORT [facility] A Service of [facility] & [facility] RADIOLOGY TEXT RESULTS PATIENT: DEBRA MARROQUIN LOCATION: [facility] : [birth year] UNIT #: [id number] AGE: [address]: Lauren Salazar MD SEX: M ORDER DR: Farnaz Orta M.D. at 05/12/2016 8:37 AM AKASH/geetha TD: 05/08/2016 11:20 JOB #: [id number] MEDICAL IMAGING REPORT Page 1 of 1 COPY
--- NOTE | ~2016-05-04 | DS ---
Unit #: [id number] #: [id number] Patient: DEBRA MARROQUIN [id number] [place] [id number] [facility]. [place], [place] [address] [id number] I MR#: [id number] NAME: DEBRA MARROQUIN ROOM: [facility] Age: 55 Sex: M Admission Date: 05/04/2016 : 1960 Discharge Date: Attending Physician: Yemi Mathur M.D. Primary Care Physician: Ricardo Grimaldo M.D. DISCHARGE SUMMARY REASON FOR ADMISSION Acute respiratory failure. HISTORY OF PRESENT ILLNESS Patient is a 55-year-old male who was recently admitted to [facility] for a fairly prolonged hospital stay from April 16, 2016, to April 30, 2016. At that time, per Discharge Summary, he was discharged after having a right foot ulcer and fever. He underwent incision and drainage x2, as well as a transmetatarsal amputation. His right foot infected ulcer did reveal MRSA at that time, and apparently he was discharged with Chana on a weekly basis per Orthopedic and Infectious Disease recommendations. He tells me that after going home he began developing a mild cough and some congestion, and over the past 48 hours, he had difficulty taking a deep breath. He does not characterize it as much as chest pain. It is more of a discomfort upon deep breathing. He denies any fevers at home. However, he states that he felt fairly sweaty, as well as hot, although he did not formally check his temperature while he was at home. He denies any acute sick contacts. His family members in the household have been otherwise well. PAST MEDICAL HISTORY 1. Recent hospital admission secondary to osteomyelitis as mentioned above. Right foot infected ulcer with MRSA, status post amputation of transmetatarsal of the right foot. 2. Insulin-dependent diabetes followed by Dr. Grimaldo. 3. Prior history of noncompliance per chart review. 4. Chronic pain syndrome. 5. Hyperlipidemia. 6. Hypertension. 7. Prior history of coronary artery disease, status post CABG in the past. 8. Osteoarthritis history. 9. I believe chronic kidney disease, baseline close to 1.6. CURRENT HOME MEDICATIONS 1. Lopressor. 2. Lisinopril. 3. Norvasc. 4. Lipitor. 5. Glucophage. 6. Novolin 70/30. 7. Aspirin. Unit #: [id number] #: [id number] Patient: DEBRA MARROQUIN 8. Methadone. 9. MiraLAX. ALLERGIES No known drug allergies, although gadobenic acid appears on prior records. FAMILY HISTORY Reviewed and noncontributory or non-pertinent. SOCIAL HISTORY No alcohol use and no tobacco use. Patient denies illicit drug use. REVIEW OF SYSTEMS Please see History of Present Illness. Twelve points otherwise negative except for those positive and noted in the HPI. PHYSICAL EXAMINATION VITAL SIGNS: Temperature on admission 99.6, pulse 84, respiratory rate 18, blood pressure 168/77, and O2 saturation 77% on room air. GENERAL APPEARANCE: Patient is a 55-year-old male who is sitting up having some mild respiratory distress. HEAD: Atraumatic and normocephalic. EARS: Tympanic membranes do not reveal any erythema or injection. NECK: Supple. CARDIOVASCULAR: S1 and S2. No murmur heard. RESPIRATORY: Coarse breath sounds noted with prolonged expiration. Fairly good air exchange is noted. GASTROINTESTINAL/ABDOMEN: Nontender and nondistended. LOWER EXTREMITIES: No evidence of any lower extremity edema. Right lower extremity is in a cast. Right upper extremity has a PICC line which is in place. There is scant left lower extremity edema which is noted. NEUROLOGIC: Alert and oriented x3 with no evidence of any focal nerve deficits. DIAGNOSTIC STUDIES INITIAL LABORATORY: White count of 7.8, hemoglobin 9.1, and platelets 175,000. Potassium 3.3, creatinine 1.5, and glucose 164. D-dimer 2753. BNP 1411. AST and ALT 332 and 173. Arterial blood gas on admission revealed a pH of 7.43 and PCO2 of 37.6. Lactic acid level 0.8. IMAGING: Chest x-ray shows bilateral diffuse alveolar infiltrates. CARDIOLOGY: EKG shows normal sinus. INITIAL ADMISSION DIAGNOSES 1. Bilateral infiltrates/pneumonia, presumed healthcare-acquired pneumonia. 2. Acute hypoxic respiratory failure. 3. Recent hospital admission secondary to osteomyelitis, status post transmetatarsal amputation with resultant cultures positive for MRSA. 4. Diabetes with insulin dependence with prior history of noncompliance. 5. Chronic pain syndrome. 6. Hyperlipidemia. 7. Hypertension. 8. Coronary artery disease history. PLAN Admission to telemetry floor. Begin healthcare-acquired pneumonia Unit #: [id number] #: [id number] Patient: DEBRA MARROQUIN protocol. Blood culture, sputum culture. I do not see any prior 2D echos which are present within the chart, and given prior history of coronary artery disease, as well as elevated BNP, will check a 2D echo. A cardiac consultation will be obtained as well. An Infectious Disease consultation will be obtained especially in light of recent hospital admission and for antibiotic management. His metformin and lisinopril for now will be placed on hold secondary to elevated creatinine. He will be maintained on routine Accu-Cheks, low dose for now. Appropriate respiratory support will be initiated with aerosols and Solu-Medrol. A Pulmonary consultation may be obtained if deemed appropriate through hospital course. I will also check a V/Q scan, as well as lower extremity Dopplers in regards to his elevated D-dimer. Unfortunately, a CTA cannot be performed secondary to elevated creatinine. In regards to his elevated LFTs, upon chart review, I do not see any previous numbers in our system. For now, I will presume it may be passive hepatic congestion secondary to heart failure, but will recheck his labs in the morning and check a 2D echo, and then further disposition will be after appropriate studies have come back. The plans have been reviewed with the patient, as well as his present at bedside. All parties are in agreement. Dictated by... Nicci Tavera/selina TD: 05/06/2016 19:19 JOB #: [id number] DISCHARGE SUMMARY X Ros Oliveira MD X DISCHARGE SUMMARY
--- NOTE | ~2016-05-04 | CR72 ---
[facility] A Service of [facility] & [facility] RADIOLOGY TEXT RESULTS PATIENT: DEBRA MARROQUIN LOCATION: [place] [address] : [birth year] UNIT #: [id number] AGE: [address]: Yemi Mathur MD SEX: M ORDER DR: [id number] [facility] [address] [facility]. [place], [place] [address] [id number] I MR#: [id number] Acc #: [id number] NAME: DEBRA MARROQUIN : 1960 SEX: M STUDY DATE/TIME: 05/06/2016 17:47 UNIT: [facility] ROOM: [facility] STUDY DESCRIPTION: CR Chest Single View Portable Attending Physician: Yemi Mathur M.D. Ordering Physician: Abhijeet Smith M.D. Primary Care Physician: Ricardo Grimaldo M.D. MEDICAL IMAGING REPORT This report is preliminary unless electronic signature is present EXAM Portable chest HISTORY Intubation. Check Dobbhoff tube, intubated today. COMPARISON 05/04/2016 FINDINGS Portable view of the chest demonstrates interval placement of an endotracheal tube about 3.4 cm above the lorri. This should be satisfactory positioning. A Dobbhoff feeding tube courses through the mediastinum and its distal tip is not clearly visible but projects well below the GE junction. No significant change in cardiopulmonary status. There is continued extensive bilateral alveolar infiltrates right greater than left most likely represents diffuse pulmonary edema or less likely pneumonia. No sizeable effusions. Stable cardiomediastinal silhouette in this patient post median sternotomy. No visible pneumothorax. Dictated by... Luis Enrique Eddy M.D. THIS IS AN ELECTRONICALLY VERIFIED REPORT Luis Enrique Eddy M.D. at 05/07/2016 8:42 PM Bill TD: 05/07/2016 09:00 JOB #: [id number] MEDICAL IMAGING REPORT COPY
--- NOTE | ~2016-05-04 | EKG ---
PATIENT: DEBRA MARROQUIN UNIT #: [id number] Ventricular Rate: 77 BPM Atrial Rate: 77 BPM P-R Interval: 154 ms QRS Duration: 90 ms Q-T Interval: 482 ms QTC Calculation(Bezet): 545 ms P [place]: 52 degrees Calculated R [place]: 77 degrees Calculated T [place]: 127 degrees Diagnosis Line: Normal sinus rhythm Diagnosis Line: Possible Left atrial enlargement Diagnosis Line: ST and T wave abnormality, consider inferior Diagnosis Line: ischemia Diagnosis Line: Abnormal ECG Diagnosis Line: When compared with ECG of 16-APR-2016 04:59, Diagnosis Line: Premature ventricular complexes are no longer Diagnosis Line: Present Diagnosis Line: T wave inversion now evident in Anterior leads Diagnosis Line: QT has lengthened Diagnosis Line: Confirmed by RADHA CHRISTENSEN MD ([id number]) on Diagnosis Line: 05/05/2016 8:17:47 AM INTERPRETING MD: AMPARO VALDEZ
--- NOTE | ~2016-05-04 | CR72 ---
[facility] A Service of [facility] & [facility] RADIOLOGY TEXT RESULTS PATIENT: DEBRA MARROQUIN LOCATION: [place] [address] : [birth year] UNIT #: [id number] AGE: [address]: Yemi Mathur MD SEX: M ORDER DR: [id number] [facility] [address] [place], [place] [address] [id number] I MR#: [id number] Acc #: [id number] NAME: DEBRA MARROQUIN : 1960 SEX: M STUDY DATE/TIME: 05/07/2016 5:31 UNIT: [facility] ROOM: [facility] STUDY DESCRIPTION: CR Chest Single View Portable Attending Physician: Yemi Mathur M.D. Ordering Physician: Abhijeet Smith M.D. Primary Care Physician: Ricardo Grimaldo M.D. MEDICAL IMAGING REPORT This report is preliminary unless electronic signature is present EXAM AP portable chest DATE 05/07/2016 at 0531 HISTORY Shortness breath, intubated with pneumonia. Symptoms began 05/01/2016. COMPARISON AP portable chest 05/06/2016 FINDINGS Diffuse interstitial and alveolar infiltrates are again seen within both lungs with improved aeration in the right upper lobe and with mild left lower lobe compared to the prior study. The ET tube, right arm approach PICC, Dobbhoff tube each appear stable in position. No definite pneumothorax. Stable cardiac enlargement with median sternotomy and CABG changes. Dictated by... Farnaz Orta M.D. THIS IS AN ELECTRONICALLY VERIFIED REPORT Farnaz Orta M.D. at 05/08/2016 12:12 AM H/to TD: 05/07/2016 13:02 JOB #: [id number] MEDICAL IMAGING REPORT COPY
--- NOTE | ~2016-05-04 | CT57 ---
[facility] A Service of [facility] RADIOLOGY TEXT RESULTS PATIENT: DEBRA MARROQUIN LOCATION: [address] : [birth year] UNIT #: [id number] AGE: [address]: Yemi Mathur MD SEX: M ORDER DR: [id number] [facility] [address]. [place], [place] [address] [id number] I MR#: [id number] Acc #: [id number] NAME: DEBRA MARROQUIN : 1960 SEX: M STUDY DATE/TIME: 05/06/2016 14:40 UNIT: [facility] ROOM: [facility] STUDY DESCRIPTION: CT Chest Wo Cont Attending Physician: Yemi Mathur M.D. Ordering Physician: Abhijeet Smith M.D. Primary Care Physician: Ricardo Grimaldo M.D. MEDICAL IMAGING REPORT This report is preliminary unless electronic signature is present EXAM CT chest, 05/06/2016 CLINICAL HISTORY Pneumonia and shortness of air. TECHNIQUE CT of the thorax without contrast. Coronal and sagittal reconstructions were obtained. COMPARISON Chest radiograph 05/04/2016 and 04/20/2016. FINDINGS There is diffuse bilateral interstitial and alveolar airspace opacities in both lungs. There is some thickening of the pleura. Small bilateral pleural effusions are noted. This has an overall appearance of diffuse pulmonary edema however, multifocal Small bilateral pleural effusions are noted. This overall there is overall appearance of diffuse pulmonary edema, however, multifocal pneumonia or ARDS could have a similar appearance. The central airways are patent. There are some borderline enlarged mediastinal lymph nodes. A precarinal lymph node measures 1.6 cm short axis. There is diffuse coronary calcifications. There is a right PICC terminating over the cavoatrial junction. There is a hyperdense mass in the mid-left kidney measuring up to 3.9 cm. This was noted on the patient's prior CT scan. This is concerning for a primary renal cell carcinoma. No acute osseous abnormalities. There has been prior surgery at the thoracolumbar junction. [facility] A Service of [facility] RADIOLOGY TEXT RESULTS PATIENT: DEBRA MARROQUIN LOCATION: [facility] : [birth year] UNIT #: [id number] AGE: [address]: Yemi Mathur MD SEX: M ORDER DR: IMPRESSION 1. Diffuse interstitial and alveolar airspace opacities throughout both lungs. There is also associated small bilateral pleural effusions. Overall findings suggest a diffuse pulmonary edema and congestive heart failure, however, atypical infection or ARDS area this could be additional consideration. 2. Hyperdense mass in the mid to lower left kidney as described on the recent CT of the abdomen. This is concerning for a renal cell carcinoma. Dictated by... Conrado Bergeron M.D. THIS IS AN ELECTRONICALLY VERIFIED REPORT Conrado Bergeron M.D. at 05/07/2016 8:38 AM ROD/fernando TD: 05/07/2016 05:10 JOB #: [id number] MEDICAL IMAGING REPORT COPY
--- NOTE | ~2016-05-04 | US84 ---
[id number] [facility]. [facility] [address] [place], [place] [address] [id number] I MR#: [id number] Acc #: [id number] NAME: DEBRA MARROQUIN : 1960 SEX: M STUDY DATE/TIME: 05/04/2016 19:49 UNIT: [facility] ROOM: 472 STUDY DESCRIPTION: US LE Veins Complete [place] Stdy Attending Physician: Yemi Mathur M.D. Ordering Physician: Ros Oliveira M.D. Primary Care Physician: Ricardo Grimaldo M.D. MEDICAL IMAGING REPORT This report is preliminary unless electronic signature is present EXAM Bilateral lower extremity venous duplex ultrasound, 05/04/2016, HISTORY 55-year-old male with shortness of breath for 2 days. Right foot amputation 05/02/2016. COMPARISON Right lower extremity venous ultrasound 04/24/2016.. FINDINGS Real time murray-scale, color Doppler, and spectral Doppler analysis of the bilateral lower extremity deep venous systems was performed. There is a cast on the right lower extremity below the knee which prohibits evaluation of the right lower extremity deep veins below the knee. The right lower extremity deep veins above the knee demonstrate normal compressibility and augmentation throughout. Left lower extremity deep venous system demonstrates normal venous waveforms with normal compressibility and augmentation throughout. No evidence of bilateral lower extremity deep venous thrombosis. IMPRESSION Negative for bilateral lower extremity DVT allowing for casting material prohibiting evaluation of the right lower extremity below the knee. Dictated by... James Samuels M.D. THIS IS AN ELECTRONICALLY VERIFIED REPORT James Samuels M.D. at 05/05/2016 6:48 PM LONNIE/geetha TD: 05/05/2016 09:38 JOB #: [id number] MEDICAL IMAGING REPORT COPY
--- NOTE | ~2016-05-04 | CR72 ---
[facility] A Service of [facility] RADIOLOGY TEXT RESULTS PATIENT: DEBRA MARROQUIN LOCATION: [place] [address] : [birth year] UNIT #: [id number] AGE: [address]: Yemi Mathur MD SEX: M ORDER DR: [id number] [facility] [address]. [place], [place] [address] [id number] I MR#: [id number] Acc #: [id number] NAME: DEBRA MARROQUIN : 1960 SEX: M STUDY DATE/TIME: 05/04/2016 16:40 UNIT: [facility] ROOM: [facility] STUDY DESCRIPTION: CR Chest Single View Portable Attending Physician: Ros Oliveira M.D. Ordering Physician: Bang Aranda M.D. Primary Care Physician: Ricardo Grimaldo M.D. MEDICAL IMAGING REPORT This report is preliminary unless electronic signature is present EXAM AP chest radiograph dated 05/04/2016 COMPARISON To a film of 04/20/2016 HISTORY SUPPLIED Shortness of breath beginning 3 days ago. FINDINGS An AP view is obtained. The patient has developed diffuse bilateral interstitial and alveolar infiltrates. The heart size is stable. There are postop changes of sternotomy and thoracolumbar fusion. Right-sided PICC line terminates in the SVC. CONCLUSION 1. Interim development of bilateral diffuse interstitial and alveolar infiltrates. No evidence of pleural fluid to suspect infectious or inflammatory etiologies. 2. Right-sided PICC line is in place terminating in the SVC. Dictated by... Jd Moore M.D. THIS IS AN ELECTRONICALLY VERIFIED REPORT Jd Moore M.D. at 05/05/2016 3:37 PM VLADIMIR/yury TD: 05/05/2016 04:15 JOB #: [id number] MEDICAL IMAGING REPORT [facility] A Service of [facility] RADIOLOGY TEXT RESULTS PATIENT: DEBRA MARROQUIN LOCATION: [place] [address] : [birth year] UNIT #: [id number] AGE: [address]: Yemi Mathur MD SEX: M ORDER DR: NORBERTO
--- NOTE | ~2016-05-04 | OR ---
Unit #: [id number] #: [id number] Patient: DEBRA MARROQUIN [id number] [address] [address] [id number] I MR#: [id number] NAME: DEBRA MARROQUIN ROOM: [facility] Date of Procedure: Admission Date: 05/04/2016 Surgeon: Abhijeet Smith M.D. : 1960 Attending Physician: Yemi Mathur M.D. Primary Care Physician: Ricardo Grimaldo M.D. PROCEDURE OPERATIVE NOTE PROCEDURE Endotracheal intubation. INDICATION Respiratory failure. PRE-PROCEDURE DIAGNOSIS Respiratory failure. POST PROCEDURE DIAGNOSIS Respiratory failure. DETAILS OF THE PROCEDURE After taking consent from the patient explaining risks and benefits, patient placed in a proper position. Using size for MAC laryngoscope, under direct visualization a size 8 endotracheal tube passed through the vocal cords. Good color change on end-tidal CO2 monitor. No complications happened. Patient tolerated procedure very well. Dictated by... Nicci Valdovinos/silvino TD: 05/07/2016 06:59 JOB #: [id number] PROCEDURE OPERATIVE NOTE X Abhijeet Smith MD PROCEDURE OPERATIVE NOTE
--- NOTE | ~2016-05-04 | CO ---
Unit #: [id number] #: [id number] Patient: DEBRA MARROQUIN [id number] [place], [place] [address] [id number] MR#: [id number] NAME: DEBRA MARROQUIN ROOM: [facility] Age: 55 Sex: M Admission Date: 05/04/2016 : 1960 Attending Physician: Yemi Mathur M.D. Primary Care Physician: Ricardo Grimaldo M.D. CONSULTATION REPORT REASON FOR CONSULTATION Respiratory failure and critical care management. CHIEF COMPLAINT Cough and shortness of breath. HISTORY OF PRESENT ILLNESS This patient basically is a 55-year-old male with past medical history of diabetes mellitus, who was discharged after osteomyelitis of MRSA of right foot and surgery was done. Came in with a complaint of cough, shortness of breath, increasing sputum production and has been admitted with impression of respiratory failure. I am seeing the patient at the bedside. Denies any headache, blurry vision. No chest pain. REVIEW OF SYSTEMS Positive for pallor. No edema. No cyanosis. No jaundice. PHYSICAL EXAMINATION VITAL SIGNS: Temperature 98, pulse 87, respirations 12, blood pressure is 162/88. NEUROLOGIC: Awake, alert, oriented. No neuro deficit. HEENT: PERRLA plus 1. NECK: Supple. No JVD. CHEST: Bilateral air entry. Bilateral mild rhonchi. GASTROINTESTINAL: Nontender, soft. Bowel sounds positive. EXTREMITIES: No edema. SKIN: No rashes. No ulcers. LYMPHATIC: No lymphadenopathy. DIAGNOSTIC STUDIES Labs and imaging have been reviewed. PAST MEDICAL HISTORY 1. Hypertension. 2. Diabetes mellitus. 3. Coronary artery disease. SOCIAL HISTORY Nonsmoker. No alcohol. No drug abuse. FAMILY HISTORY None as per record. MEDICATIONS Unit #: [id number] #: [id number] Patient: DEBRA MARROQUIN As per MAR, has been reviewed. ASSESSMENT 1. Severe acute respiratory distress syndrome. 2. Acute respiratory failure. 3. Healthcare-associated pneumonia. 4. Diabetes mellitus. 5. Hypertension. 6. Right foot infection. PLAN At this point, plan is to transfer patient to ICU. Start blood gas, wean oxygen. Continue bronchodilator. Noncontrast CT of the chest. Continue IV antibiotics as per infectious disease. Discontinue IV steroids. Patient will be closely monitored. Please see orders for detailed plan. I would like to thank you for your kind consideration to involve me in taking care of this patient. Dictated by... Nicci Valdovinos TD: 05/06/2016 10:49 JOB #: [id number] CONSULTATION REPORT X Abhijeet Smith MD CONSULTATION REPORT
--- NOTE | ~2016-05-04 | NM69 ---
[facility] A Service of [facility] RADIOLOGY TEXT RESULTS PATIENT: DEBRA MARROQUIN LOCATION: [place] [address]- : [birth year] UNIT #: [id number] AGE: [address]: Yemi Mathur MD SEX: M ORDER DR: [id number] [facility] [address] [place], [place] [address] [id number] I MR#: [id number] Acc #: [id number] NAME: DEBRA MARROQUIN : 1960 SEX: M STUDY DATE/TIME: 05/05/2016 10:08 UNIT: [facility] ROOM: [facility] STUDY DESCRIPTION: NM Pulm Vent and Perf Attending Physician: Yemi Mathur M.D. Ordering Physician: Ros Oliveira M.D. Primary Care Physician: Ricardo Grimaldo M.D. MEDICAL IMAGING REPORT This report is preliminary unless electronic signature is present EXAM Ventilation perfusion lung scan HISTORY History supplied is elevated D-dimer and hypoxemia. Lower extremity swelling. Symptoms for 3-4 days. Combination ventilation-perfusion scintigraphy was performed on 05/05/2016 and compared to the previous day's radiograph of May 04, 2016. This examination shows bilateral patchy pulmonary infiltrates throughout both lungs particularly more prevalent on the right than the left. The patient has had a recent right foot amputation. Color Doppler studies performed on 05/04/2016 show no evidence of DVT. TECHNIQUE Combination ventilation-perfusion scintigraphy was performed. 31.6 mCi of Tc99 MDP aerosol and 5.57 mCi of Tc99m MAA. FINDINGS Ventilatory study shows multiple patchy subsegmental defects in both lungs more prevalent in the right than on the left. The largest defect is in the right upper lobe. Perfusion imaging shows likewise multiple small subsegmental defects. These defects are in all cases the same size or smaller than the ventilatory defects. Several of these defects as noted are matched. There also correspond to the patient's chest x-ray infiltrates. CONCLUSION 1. This has an intermediate probability scan for pulmonary embolism [facility] A Service of [facility] RADIOLOGY TEXT RESULTS PATIENT: DEBRA MARROQUIN LOCATION: [facility] [id number] : [birth year] UNIT #: [id number] AGE: [address]: Yemi Mathur MD SEX: M ORDER DR: based on number of infiltrates on the chest radiograph and corresponding defects. In all cases the ventilatory defects are more striking than the perfusion defects and there is no evidence of a ventilation perfusion mismatch. This is more suggestive of alveolar disease than thromboembolic disease. Dictated by... Jd Moore M.D. THIS IS AN ELECTRONICALLY VERIFIED REPORT Jd Moore M.D. at 05/05/2016 3:37 PM VLADIMIR/betty TD: 05/05/2016 14:36 JOB #: [id number] MEDICAL IMAGING REPORT COPY
[2016-05-04 16:08] LABS: ARTERIAL BLD GAS O2 SATURATION 97.2 % (90.0-100.0); ARTERIAL BLOOD GAS HCO3 25.4 mmol/L; ARTERIAL BLOOD GAS PCO2 37.6 mmHg (35.0-45.0); ARTERIAL BLOOD GAS pH 7.438 (7.350-7.450)
[2016-05-04 16:09] LABS: ARTERIAL BLOOD GAS ALLEN TEST NORMAL; ARTERIAL BLOOD GAS ART SITE RIGHT RADIAL; ARTERIAL BLOOD GAS DELIVERY NON REBREATHER MASK; ARTERIAL DRAW? YES
[2016-05-04 16:38] LABS: EOSINOPHIL# 0.1 X10e3 (0-0.7); EOSINOPHIL% 1.4 % (0.0-7.0); HEMATOCRIT 28.4 % (38.0-50.0); HEMOGLOBIN 9.1 gm/dL (13.0-16.0); LYMPHOCYTE# 0.4 X10e3 (1.0-3.5); LYMPHOCYTE% 5.4 % (17.0-45.0); MEAN CELL VOLUME 75.2 FL (83-96); MEAN CORPUSCULAR HEMOGLOBIN 24.1 PG (28-34); MEAN PLATELET VOLUME 9.8 FL (6.5-11.5); MONOCYTE# 1.4 X10e3 (0-1.0); MONOCYTE% 17.6 % (3.0-12.0); NEUTROPHIL# 5.9 X10e3 (1.5-7.1); NEUTROPHIL% 75.6 % (40-75); PLATELET COUNT 175 X10e3 (140-420); RED BLOOD COUNT 3.78 X10e (3.90-5.60); RED CELL DISTRIBUTION WIDTH 17.7 % (11.0-15.5); WHITE BLOOD COUNT 7.8 X10e3 (4.0-10.5)
[2016-05-04 16:42] LABS: DIFF IND NO
[2016-05-04 17:04] LABS: ALBUMIN SERUM 2.5 g/dL (3.5-5.0); BILIRUBIN, DIRECT 0.2 mg/dL (0.0-0.2); BILIRUBIN,INDIRECT 0.3 mg/dL (0.0-0.9); BILIRUBIN,TOTAL 0.5 mg/dL (0.2-2.0); CALCIUM SERUM 8.3 mg/dL (8.4-10.2); CREATININE SERUM 1.5 mg/dL (0.6-1.4); POTASSIUM 3.3 mmol/L (3.5-5.1); PROTEIN TOTAL SERUM 7.3 g/dL (6.0-8.3)
[~2016-05-04 17:33] MED LIST changes: -ALDACTONE25 MG PO; -CARDIZEM CD120 M1 PO; -CATAPRES-TTS-10.1 MG TOP; -HYDRALAZINE HC100 MG PO; -KCL PO; -LASIX PO; -ZYVOX600 MG PO
[2016-05-04] MEDS ORDERED: LOPRESSOR PO (18:15)
[2016-05-04] MEDS ORDERED: LISINOPRIL20 MG PO (18:16)
[2016-05-04] MEDS ORDERED: NORVASC10 MG PO (18:16)
[2016-05-04] MEDS ORDERED: LIPITOR20 MG PO (18:17)
[2016-05-04] MEDS ORDERED: NOVOLIN 70/30 V10 M1 SUBQ (18:18)
[2016-05-04] MEDS ORDERED: ASPIRIN81 MG PO (18:18)
[2016-05-04] MEDS ORDERED: GLUCOPHAGE XR500 MG PO (18:18)
[2016-05-04] MEDS ORDERED: METHADOSE10 MG PO (18:19)
[2016-05-04] MEDS ORDERED: MIRALAX17 GM PO (18:20)
[2016-05-04 18:38] LABS: POC - CKMB <1.0 ng/mL (0.0-7.9); POC - TROPONIN <0.05 ng/mL (<=0.05)
[2016-05-05 01:26] LABS: %MB 1.8 % (0.0-4.0); MB 1.7 ng/ml
[2016-05-05 03:19] LABS: BASOPHIL% 0.2 % (0-2.5); EOSINOPHIL% 0.1 % (0.0-7.0); HEMATOCRIT 26.6 % (38.0-50.0); HEMOGLOBIN 8.2 gm/dL (13.0-16.0); LYMPHOCYTE# 0.6 X10e3 (1.0-3.5); LYMPHOCYTE% 5.1 % (17.0-45.0); MEAN CELL VOLUME 76.7 FL (83-96); MEAN CORPUSCULAR HEMOGLOBIN 23.7 PG (28-34); MEAN CORPUSCULAR HGB CONC 30.9 g/dL (30-36); MEAN PLATELET VOLUME 9.8 FL (6.5-11.5); MONOCYTE# 0.5 X10e3 (0-1.0); NEUTROPHIL# 10.7 X10e3 (1.5-7.1); NEUTROPHIL% 90.6 % (40-75); PLATELET COUNT 147 X10e3 (140-420); RED BLOOD COUNT 3.46 X10e (3.90-5.60); RED CELL DISTRIBUTION WIDTH 17.5 % (11.0-15.5)
[2016-05-05 03:23] LABS: DIFF IND NO; WHITE BLOOD COUNT 11.8 X10e3 (4.0-10.5)
[2016-05-05 04:06] LABS: BILIRUBIN,TOTAL 0.7 mg/dL (0.2-2.0); BUN/CREATININE RATIO 16.66; CALCIUM SERUM 7.5 mg/dL (8.4-10.2); CREATININE SERUM 1.5 mg/dL (0.6-1.4); POTASSIUM 3.7 mmol/L (3.5-5.1); PROTEIN TOTAL SERUM 5.8 g/dL (6.0-8.3)
[2016-05-05 06:55] LABS: %MB 1.6 % (0.0-4.0); MB 1.4 ng/ml
[2016-05-05 18:49] LABS: BUN/CREATININE RATIO 18.66; CALCIUM SERUM 7.6 mg/dL (8.4-10.2); CREATININE SERUM 1.5 mg/dL (0.6-1.4); POTASSIUM 4.1 mmol/L (3.5-5.1)
[2016-05-06 04:30] LABS: BASOPHIL% 0.1 % (0-2.5); HEMATOCRIT 28.7 % (38.0-50.0); LYMPHOCYTE# 0.7 X10e3 (1.0-3.5); LYMPHOCYTE% 7.9 % (17.0-45.0); MEAN CORPUSCULAR HEMOGLOBIN 23.6 PG (28-34); MEAN CORPUSCULAR HGB CONC 31.4 g/dL (30-36); MEAN PLATELET VOLUME 9.7 FL (6.5-11.5); MONOCYTE# 0.3 X10e3 (0-1.0); MONOCYTE% 3.8 % (3.0-12.0); NEUTROPHIL# 7.7 X10e3 (1.5-7.1); NEUTROPHIL% 88.2 % (40-75); PLATELET COUNT 157 X10e3 (140-420); RED BLOOD COUNT 3.83 X10e (3.90-5.60); RED CELL DISTRIBUTION WIDTH 17.3 % (11.0-15.5); WHITE BLOOD COUNT 8.8 X10e3 (4.0-10.5)
[2016-05-06 04:33] LABS: DIFF IND NO
[2016-05-06 05:00] LABS: CALCIUM SERUM 8.2 mg/dL (8.4-10.2); CREATININE SERUM 1.5 mg/dL (0.6-1.4); POTASSIUM 3.8 mmol/L (3.5-5.1)
[2016-05-06 11:36] LABS: ARTERIAL BLD GAS O2 SATURATION 92.2 % (90.0-100.0); ARTERIAL BLOOD GAS CARBOXY HB 0.5 %sat (0.0-9.0); ARTERIAL BLOOD GAS HCO3 24.8 mmol/L; ARTERIAL BLOOD GAS MET HB 0.8 %sat (0.0-2.0); ARTERIAL BLOOD GAS PCO2 35.9 mmHg (35.0-45.0); ARTERIAL BLOOD GAS pH 7.448 (7.350-7.450)
[2016-05-06 11:37] LABS: ARTERIAL BLOOD GAS ALLEN TEST NORMAL; ARTERIAL BLOOD GAS ART SITE RIGHT RADIAL; ARTERIAL BLOOD GAS DELIVERY VENTURI MASK; ARTERIAL BLOOD GAS PO2 65.5 mmHg (80.0-100); ARTERIAL DRAW? YES
[2016-05-06 17:33] LABS: ARTERIAL BLD GAS O2 SATURATION 98.8 % (90.0-100.0); ARTERIAL BLOOD GAS CARBOXY HB 0.4 %sat (0.0-9.0); ARTERIAL BLOOD GAS HCO3 26.4 mmol/L; ARTERIAL BLOOD GAS pH 7.428 (7.350-7.450)
[2016-05-06 17:34] LABS: ARTERIAL BLOOD GAS ART SITE RIGHT RADIAL; ARTERIAL BLOOD GAS DELIVERY VENT; ARTERIAL BLOOD GAS VENT MODE AC; ARTERIAL DRAW? YES
[2016-05-06 18:54] LABS: BF TOTAL NUCLEATED CELL COUNT 381 CMM (0-100); BODY FLUID APPEARANCE HAZY; BODY FLUID RBC <10000 CMM; BODY FLUID SOURCE BRONCHIAL LAVAGE
[2016-05-07 03:47] LABS: HEMATOCRIT 27.2 % (38.0-50.0); HEMOGLOBIN 8.5 gm/dL (13.0-16.0); LYMPHOCYTE# 0.8 X10e3 (1.0-3.5); LYMPHOCYTE% 5.4 % (17.0-45.0); MEAN CELL VOLUME 75.2 FL (83-96); MEAN CORPUSCULAR HEMOGLOBIN 23.5 PG (28-34); MEAN CORPUSCULAR HGB CONC 31.3 g/dL (30-36); MEAN PLATELET VOLUME 9.9 FL (6.5-11.5); MONOCYTE# 0.4 X10e3 (0-1.0); NEUTROPHIL# 13.7 X10e3 (1.5-7.1); NEUTROPHIL% 91.6 % (40-75); PLATELET COUNT 155 X10e3 (140-420); RED BLOOD COUNT 3.62 X10e (3.90-5.60); RED CELL DISTRIBUTION WIDTH 17.3 % (11.0-15.5)
[2016-05-07 03:48] LABS: DIFF IND NO
[2016-05-07 04:10] LABS: ALBUMIN SERUM 2.1 g/dL (3.5-5.0); ALKALINE PHOSPHATASE 108 U/L (32-92); ALT (SGPT) 168 U/L (10-40); AST (SGOT) 101 U/L (10-42); BILIRUBIN,TOTAL 0.6 mg/dL (0.2-2.0); BLOOD UREA NITROGEN 27 mg/dL (9-23); BUN/CREATININE RATIO 20.76; CALCIUM SERUM 7.9 mg/dL (8.4-10.2); CARBON DIOXIDE 28 mmol/L (22-31); CHLORIDE 103 mmol/L (100-111); CREATININE SERUM 1.3 mg/dL (0.6-1.4); GLOM FILT RATE Estimated ABOVE60 mL/min (>60); GLUCOSE FASTING 232 mg/dL (70-110); POTASSIUM 3.2 mmol/L (3.5-5.1); PROTEIN TOTAL SERUM 6.7 g/dL (6.0-8.3); SODIUM 134 mmol/L (135-145)
[2016-05-07 05:55] LABS: ARTERIAL BLD GAS O2 SATURATION 99.9 % (90.0-100.0); ARTERIAL BLOOD GAS ALLEN TEST NORMAL; ARTERIAL BLOOD GAS ART SITE LEFT RADIAL; ARTERIAL BLOOD GAS CARBOXY HB 0.2 %sat (0.0-9.0); ARTERIAL BLOOD GAS DELIVERY VENT; ARTERIAL BLOOD GAS HCO3 28.7 mmol/L; ARTERIAL BLOOD GAS PCO2 37.6 mmHg (35.0-45.0); ARTERIAL DRAW? YES
[2016-05-07 05:56] LABS: ARTERIAL BLOOD GAS VENT MODE AC
[2016-05-08 03:31] LABS: BASOPHIL% 0.1 % (0-2.5); HEMATOCRIT 29.8 % (38.0-50.0); HEMOGLOBIN 9.3 gm/dL (13.0-16.0); LYMPHOCYTE# 1.7 X10e3 (1.0-3.5); LYMPHOCYTE% 14.9 % (17.0-45.0); MEAN CELL VOLUME 74.9 FL (83-96); MEAN CORPUSCULAR HEMOGLOBIN 23.4 PG (28-34); MEAN CORPUSCULAR HGB CONC 31.2 g/dL (30-36); MEAN PLATELET VOLUME 9.9 FL (6.5-11.5); MONOCYTE# 0.8 X10e3 (0-1.0); MONOCYTE% 7.2 % (3.0-12.0); NEUTROPHIL# 8.7 X10e3 (1.5-7.1); NEUTROPHIL% 77.8 % (40-75); PLATELET COUNT 164 X10e3 (140-420); RED BLOOD COUNT 3.98 X10e (3.90-5.60); RED CELL DISTRIBUTION WIDTH 17.4 % (11.0-15.5); WHITE BLOOD COUNT 11.2 X10e3 (4.0-10.5)
[2016-05-08 03:34] LABS: DIFF IND NO
[2016-05-08 03:57] LABS: ALBUMIN SERUM 2.2 g/dL (3.5-5.0); BILIRUBIN,TOTAL 0.5 mg/dL (0.2-2.0); BUN/CREATININE RATIO 17.14; CREATININE SERUM 1.4 mg/dL (0.6-1.4); GLOM FILT RATE Estimated 56.3 mL/min (>60); MAGNESIUM 1.7 mg/dL (1.6-3.0); PROTEIN TOTAL SERUM 6.9 g/dL (6.0-8.3)
[2016-05-08 04:04] LABS: POTASSIUM 2.6 mmol/L (3.5-5.1)
[2016-05-08 09:08] LABS: ARTERIAL BLD GAS O2 SATURATION 97.8 % (90.0-100.0); ARTERIAL BLOOD GAS CARBOXY HB 0.5 %sat (0.0-9.0); ARTERIAL BLOOD GAS HCO3 33.9 mmol/L; ARTERIAL BLOOD GAS MET HB 0.8 %sat (0.0-2.0); ARTERIAL BLOOD GAS PCO2 46.2 mmHg (35.0-45.0); ARTERIAL BLOOD GAS pH 7.474 (7.350-7.450)
[2016-05-08 09:09] LABS: ARTERIAL BLOOD GAS ALLEN TEST NORMAL; ARTERIAL BLOOD GAS ART SITE RIGHT RADIAL; ARTERIAL DRAW? YES
[2016-05-08 09:10] LABS: ARTERIAL BLOOD GAS DELIVERY VENT; ARTERIAL BLOOD GAS VENT MODE CPAP
[2016-05-09 04:40] LABS: BASOPHIL% 0.1 % (0-2.5); EOSINOPHIL# 0.2 X10e3 (0-0.7); EOSINOPHIL% 2.1 % (0.0-7.0); HEMATOCRIT 32.4 % (38.0-50.0); HEMOGLOBIN 10.1 gm/dL (13.0-16.0); LYMPHOCYTE# 2.2 X10e3 (1.0-3.5); LYMPHOCYTE% 22.4 % (17.0-45.0); MEAN CELL VOLUME 75.3 FL (83-96); MEAN CORPUSCULAR HEMOGLOBIN 23.5 PG (28-34); MEAN CORPUSCULAR HGB CONC 31.3 g/dL (30-36); MONOCYTE# 0.8 X10e3 (0-1.0); MONOCYTE% 8.2 % (3.0-12.0); NEUTROPHIL# 6.6 X10e3 (1.5-7.1); NEUTROPHIL% 67.2 % (40-75); PLATELET COUNT 186 X10e3 (140-420); RED CELL DISTRIBUTION WIDTH 17.5 % (11.0-15.5); WHITE BLOOD COUNT 9.8 X10e3 (4.0-10.5)
[2016-05-09 04:44] LABS: DIFF IND NO
[2016-05-09 04:52] LABS: BUN/CREATININE RATIO 14.28; CALCIUM SERUM 8.4 mg/dL (8.4-10.2); CREATININE SERUM 1.4 mg/dL (0.6-1.4); GLOM FILT RATE Estimated 56.3 mL/min (>60); PHOSPHOROUS 3.4 mg/dL (2.5-4.6); POTASSIUM 3.3 mmol/L (3.5-5.1)
[2016-05-09 04:59] LABS: ARTERIAL BLD GAS O2 SATURATION 97.9 % (90.0-100.0); ARTERIAL BLOOD GAS CARBOXY HB 0.5 %sat (0.0-9.0); ARTERIAL BLOOD GAS HCO3 35.4 mmol/L; ARTERIAL BLOOD GAS MET HB 0.7 %sat (0.0-2.0); ARTERIAL BLOOD GAS PCO2 45.4 mmHg (35.0-45.0)
[2016-05-09 05:17] LABS: ARTERIAL BLOOD GAS ALLEN TEST NORMAL; ARTERIAL BLOOD GAS ART SITE LEFT RADIAL; ARTERIAL BLOOD GAS DELIVERY NASAL CANNULA; ARTERIAL DRAW? YES
[2016-05-10 07:45] LABS: BASOPHIL% 0.2 % (0-2.5); EOSINOPHIL# 0.4 X10e3 (0-0.7); EOSINOPHIL% 4.3 % (0.0-7.0); HEMATOCRIT 34.6 % (38.0-50.0); HEMOGLOBIN 10.7 gm/dL (13.0-16.0); LYMPHOCYTE# 1.5 X10e3 (1.0-3.5); LYMPHOCYTE% 15.7 % (17.0-45.0); MEAN CELL VOLUME 75.8 FL (83-96); MEAN CORPUSCULAR HEMOGLOBIN 23.5 PG (28-34); MEAN PLATELET VOLUME 9.6 FL (6.5-11.5); MONOCYTE# 0.7 X10e3 (0-1.0); MONOCYTE% 7.3 % (3.0-12.0); NEUTROPHIL# 6.7 X10e3 (1.5-7.1); NEUTROPHIL% 72.5 % (40-75); PLATELET COUNT 209 X10e3 (140-420); RED BLOOD COUNT 4.57 X10e (3.90-5.60); WHITE BLOOD COUNT 9.3 X10e3 (4.0-10.5)
[2016-05-10 07:57] LABS: DIFF IND NO
[2016-05-10 08:11] LABS: BUN/CREATININE RATIO 12.14; CALCIUM SERUM 8.6 mg/dL (8.4-10.2); CREATININE SERUM 1.4 mg/dL (0.6-1.4); GLOM FILT RATE Estimated 56.3 mL/min (>60); PHOSPHOROUS 3.5 mg/dL (2.5-4.6); POTASSIUM 3.8 mmol/L (3.5-5.1)
[2016-05-11 06:07] LABS: HEMATOCRIT 34.1 % (38.0-50.0); HEMOGLOBIN 10.7 gm/dL (13.0-16.0); MEAN CELL VOLUME 75.4 FL (83-96); MEAN CORPUSCULAR HEMOGLOBIN 23.6 PG (28-34); MEAN CORPUSCULAR HGB CONC 31.3 g/dL (30-36); RED BLOOD COUNT 4.52 X10e (3.90-5.60); WHITE BLOOD COUNT 8.3 X10e3 (4.0-10.5)
[2016-05-11 06:56] LABS: BUN/CREATININE RATIO 12.85; CALCIUM SERUM 8.6 mg/dL (8.4-10.2); CREATININE SERUM 1.4 mg/dL (0.6-1.4); GLOM FILT RATE Estimated 56.3 mL/min (>60); MAGNESIUM 1.9 mg/dL (1.6-3.0); POTASSIUM 3.7 mmol/L (3.5-5.1)
[2016-05-11] MEDS ORDERED: LASIX PO (14:49)
[2016-05-11] MEDS ORDERED: CARDIZEM CD120 M1 PO (14:49)
[2016-05-11] MEDS ORDERED: ALDACTONE25 MG PO (14:50)
[2016-05-11] MEDS ORDERED: CATAPRES-TTS-10.1 MG TOP (14:50)
[2016-05-11] MEDS ORDERED: HYDRALAZINE HC100 MG PO (14:50)
[2016-05-11] MEDS ORDERED: KCL PO (14:51)
[2016-05-11] MEDS ORDERED: ZYVOX600 MG PO (14:51)
== END 2016-05-11 18:22 | disposition home or self-care (01) | DRG 208 ==
LOC: CED 17:33 → CEDOF 18:30 → C4C 21:55 → CICCU2 05-06 10:39 → C2A 05-09 12:13
PROVIDERS: Emergency Medicine; Family Medicine; Internal Medicine; Internal Medicine Cardiovascular Disease; Internal Medicine Nephrology; Nurse Practitioner; Nurse Practitioner Family
PROC: B24BZZZ Ultrasonography of Heart with Aorta (ICD-10-PCS; 2016-05-05)
PROC: 5A1945Z Respiratory Ventilation, 24-96 Consecutive Hours (ICD-10-PCS; 2016-05-06)
PROC: 0DH67UZ Insertion of Feeding Device into Stomach, Via Natural or Artificial Opening (ICD-10-PCS; 2016-05-06)
PROC: 0B958ZX Drainage of Right Middle Lobe Bronchus, Via Natural or Artificial Opening Endoscopic, Diagnostic (ICD-10-PCS; 2016-05-06)
PROC: 0BH18EZ Insertion of Endotracheal Airway into Trachea, Via Natural or Artificial Opening Endoscopic (ICD-10-PCS; principal; 2016-05-06 17:00)
DX: J18.9 Pneumonia, unspecified organism (principal); I50.33 Acute on chronic diastolic (congestive) heart failure; J80 Acute respiratory distress syndrome; E11.21 Type 2 diabetes mellitus with diabetic nephropathy; K76.6 Portal hypertension; I27.2 Other secondary pulmonary hypertension; N17.9 Acute kidney failure, unspecified; N18.3 Chronic kidney disease, stage 3 (moderate); I13.0 Hypertensive heart and chronic kidney disease with heart failure and stage 1 through stage 4 chronic kidney disease, or unspecified chronic kidney disease; Y95 Nosocomial condition; N28.89 Other specified disorders of kidney and ureter; E11.22 Type 2 diabetes mellitus with diabetic chronic kidney disease; Z79.4 Long term (current) use of insulin; Z89.431 Acquired absence of right foot; E87.6 Hypokalemia; D50.9 Iron deficiency anemia, unspecified; I25.10 Atherosclerotic heart disease of native coronary artery without angina pectoris; Z95.1 Presence of aortocoronary bypass graft; G89.4 Chronic pain syndrome; D63.1 Anemia in chronic kidney disease; E78.5 Hyperlipidemia, unspecified; M19.90 Unspecified osteoarthritis, unspecified site; K31.89 Other diseases of stomach and duodenum; E66.9 Obesity, unspecified; Z68.29 Body mass index [BMI] 29.0-29.9, adult; R94.5 Abnormal results of liver function studies; Z90.49 Acquired absence of other specified parts of digestive tract; Z86.73 Personal history of transient ischemic attack (TIA), and cerebral infarction without residual deficits; Z84.1 Family history of disorders of kidney and ureter
CPT/HCPCS: 36415; 36600; 71010; 71250; 74000; 78582; 80048; 80053; 80061; 80076; 80202; 82308; 82550; 82553; 82803; 82947; 83036; 83605; 83735; 83880; 84100; 84132; 84484; 85025; 85027; 85379; 87040; 87070; 87102; 87116; 87205; 87206; 87252; 87254; 87278; 88108; 88305; 88312; 89051; 93005; 93306; 93970; 94002; 94003; 94010; 94640; 94760; 96365; 96367; 97116; 97162; 97166; 97530; 97535; 99285; A9540; A9567; G8978-GP; G8979-GP; G8980-GP; G8987-GO; G8988-GO; J0171; J0330; J0360; J1650; J1815; J1940; J2020; J2060; J2250; J2405; J2543; J2930; J2997; J3010; J3260; J3370; J3475; Q4081

== ENCOUNTER 2016-08-01 06:46 | Emergency (ER) | payer MEDICARE ==
--- NOTE | ~2016-08-01 | CR72 ---
[facility] A Service of [facility] RADIOLOGY TEXT RESULTS PATIENT: DEBRA MARROQUIN LOCATION: [facility] : [birth year] UNIT #: [id number] AGE: [address]: Freddy Henry MD SEX: M ORDER DR: [id number] [facility] [address] [place], [place] [address] [id number] E MR#: [id number] Acc #: [id number] NAME: DEBRA MARROQUIN : 1960 SEX: M STUDY DATE/TIME: 08/01/2016 7:19 UNIT: [facility] ROOM: STUDY DESCRIPTION: CR Chest Single View Portable Attending Physician: Freddy Henry M.D. Ordering Physician: Freddy Henry M.D. Primary Care Physician: Andreina Carter M.D. MEDICAL IMAGING REPORT This report is preliminary unless electronic signature is present EXAM Portable chest radiograph INDICATION Mid chest pain for 3 months off and on. Patient also reports a recent fever. FINDINGS Heart size is within normal limits for portable technique. Patient is status post median sternotomy with coronary artery bypass grafting. No pneumothorax or pleural effusion is seen. No obvious infiltrates are identified. Patient has posttraumatic deformity of the left humerus. Dictated by... Janet Batista M.D. THIS IS AN ELECTRONICALLY VERIFIED REPORT Janet Batista M.D. at 08/02/2016 10:48 AM MELISSA/seth TD: 08/01/2016 13:15 JOB #: [id number] MEDICAL IMAGING REPORT Page 1 of 1 COPY
--- NOTE | ~2016-08-01 | CT16 ---
[facility] A Service of [facility] RADIOLOGY TEXT RESULTS PATIENT: DEBRA MARROQUIN LOCATION: [facility] : 64 UNIT #: [id number] AGE: [address]: Freddy Henry MD SEX: M ORDER DR: [id number] [facility] [address] [place], [place] [address] [id number] E MR#: [id number] Acc #: [id number] NAME: DEBRA MARROQUIN : 1960 SEX: M STUDY DATE/TIME: 08/01/2016 9:43 UNIT: [facility] ROOM: STUDY DESCRIPTION: CT Angio Chest for PE Attending Physician: Freddy Henry M.D. Ordering Physician: Freddy Henry M.D. Primary Care Physician: Andreina Carter M.D. MEDICAL IMAGING REPORT This report is preliminary unless electronic signature is present EXAM CT angiogram of the chest. INDICATION Chest pain since 4 o'clock this morning. Patient also has an elevated D-dimer. TECHNIQUE Axial CT images were obtained from the thoracic inlet through the dome of the diaphragm following administration of intravenous contrast material. This CT exam was performed with one or more of the following radiation dose reduction techniques: automatic exposure control, adjustment of mA and/or kV according to patient size, and iterative reconstruction. FINDINGS No acute pulmonary thromboembolus is seen. Thoracic aorta measures within normal size limits, and I do not see any evidence of dissection. Patient is noted to have some atherosclerotic involvement seen at the origin of the left subclavian artery which I think probably does result in some narrowing in the range of about 50%. The thyroid gland, trachea and esophagus appear unremarkable. There is no pleural or pericardial effusion. The patient does have coronary artery calcifications, prominent precarinal lymph node is again noted. This is also seen on the CT from May 06, 2016, but this actually appears smaller, and is favored to represent a benign reactive node. This patient is noted to have some scattered nodules within the right lower lobe which range in size from about 4-6 mm. These are not clearly identified on the prior study due to overlying infiltrates. An area of scarring of bronchiectasis within the right middle lobe is again noted. This has been present on exams dating back to 2009. There is a suggestion of a mass arising from the left kidney. This has been better seen on prior exams, and this should be considered a renal cell carcinoma until proven, otherwise. Further evaluation with renal protocol CT or MRI on a nonemergent outpatient basis [facility] A Service of [facility] RADIOLOGY TEXT RESULTS PATIENT: DEBRA MARROQUIN LOCATION: [facility] : [birth year] UNIT #: [id number] AGE: [address]: Freddy Henry MD SEX: M ORDER DR: is recommended. Review of bony windows demonstrates old left-sided rib fractures. No aggressive osseous abnormalities are seen IMPRESSION 1. No acute pulmonary thromboembolus seen. 2. Thoracic aorta is normal in caliber with no evidence of dissection. 3. Scattered pulmonary nodules within the right lower lobe favored to be infectious or inflammatory in nature, but attention to them on a follow-up study in 6 months is suggested. Patient also has a mildly prominent precarinal node which has actually improved when compared to the May 06 examination. This is felt to represent a benign reactive node. 4. On prior studies, the patient has been noted to have a mass-like area within the left kidney which is certainly worrisome for renal cell carcinoma. Further evaluation with renal protocol CT or MRI on a nonemergent outpatient basis is recommended. Dictated by... Janet Batista M.D. THIS IS AN ELECTRONICALLY VERIFIED REPORT Janet Batista M.D. at 08/02/2016 10:49 AM MELISSA/harley TD: 08/01/2016 15:31 JOB #: [id number] MEDICAL IMAGING REPORT Page 1 of 1 COPY
--- NOTE | ~2016-08-01 | US115 ---
[facility] A Service of [facility] RADIOLOGY TEXT RESULTS PATIENT: DEBRA MARROQUIN LOCATION: [facility] : 64 UNIT #: [id number] AGE: [address]: Freddy Henry MD SEX: M ORDER DR: [id number] [place] [id number] [facility] [place], [place] [address] [id number] E MR#: [id number] Acc #: [id number] NAME: DEBRA MARROQUIN : 1960 SEX: M STUDY DATE/TIME: 08/01/2016 8:37 UNIT: [facility] ROOM: STUDY DESCRIPTION: US Scrotum and Contents Attending Physician: Freddy Henry M.D. Ordering Physician: Freddy Henry M.D. Primary Care Physician: Andreina Carter M.D. MEDICAL IMAGING REPORT This report is preliminary unless electronic signature is present EXAM Scrotal Doppler. INDICATION Right testicular pain for 2 days. TECHNIQUE Reyes-scale, color Doppler and spectral Doppler waveform analysis was performed through the scrotum. FINDINGS Both testicles are homogeneous in echotexture. No masses are seen and there is normal color-Doppler flow. Right epididymis, I think, is unremarkable. Track Rider reports that the left epididymis could not be seen. Small bilateral hydroceles are present. IMPRESSION 1. Normal color-Doppler flow is seen within both testicles. 2. Small bilateral hydroceles. 3. Track Rider reports that the left epididymis cannot be identified. Dictated by... Janet Batista M.D. THIS IS AN ELECTRONICALLY VERIFIED REPORT Janet Batista M.D. at 08/02/2016 10:50 AM MELISSA/harley TD: 08/01/2016 15:59 JOB #: [id number] MEDICAL IMAGING REPORT [facility] A Service of [facility] RADIOLOGY TEXT RESULTS PATIENT: DEBRA MARROQUIN LOCATION: [facility] : 64 UNIT #: [id number] AGE: [address]: Freddy Henry MD SEX: M ORDER DR: Page 1 of 1 COPY
--- NOTE | ~2016-08-01 | EKG ---
PATIENT: DEBRA MARROQUIN UNIT #: [id number] Ventricular Rate: 101 BPM Atrial Rate: 101 BPM P-R Interval: 156 ms QRS Duration: 86 ms Q-T Interval: 372 ms QTC Calculation(Bezet): 482 ms P [place]: 22 degrees Calculated R [place]: 69 degrees Calculated T [place]: 91 degrees Diagnosis Line: Sinus tachycardia Diagnosis Line: Otherwise normal ECG Diagnosis Line: When compared with ECG of 08-MAY-2016 06:25, Diagnosis Line: Vent. rate has increased BY 36 BPM Diagnosis Line: QT has shortened Diagnosis Line: Confirmed by MARCIN CONLEY MD ([id number]) on 08/02/2016 Diagnosis Line: 4:36:27 PM INTERPRETING MD: YAEL VALDEZ
[~2016-08-01 06:46] MED LIST changes: +ALDACTONE25 MG PO; +CARDIZEM CD120 M1 PO; +CATAPRES-TTS-10.1 MG TOP; +HYDRALAZINE HC100 MG PO; +KCL PO; +LASIX PO; +ZYVOX600 MG PO
[2016-08-01 07:56] LABS: POC - CKMB 1.7 ng/mL (0.0-7.9); POC - TROPONIN <0.05 ng/mL (<=0.05)
[2016-08-01 08:13] LABS: ALBUMIN SERUM 3.8 g/dL (3.5-5.0); ALKALINE PHOSPHATASE 89 U/L (32-92); ALT (SGPT) 17 U/L (10-40); AST (SGOT) 18 U/L (10-42); BILIRUBIN,TOTAL 0.4 mg/dL (0.2-2.0); BLOOD UREA NITROGEN 13 mg/dL (9-23); CALCIUM SERUM 9.1 mg/dL (8.4-10.2); CARBON DIOXIDE 24 mmol/L (22-31); CHLORIDE 103 mmol/L (100-111); GLUCOSE FASTING 149 mg/dL (70-110); POTASSIUM 3.5 mmol/L (3.5-5.1); SODIUM 136 mmol/L (135-145)
[2016-08-01 08:17] LABS: INR 1.1
[2016-08-01 08:19] LABS: BILIRUBIN, DIRECT <0.1 mg/dL (0.0-0.2); BILIRUBIN,INDIRECT 0.3 mg/dL (0.0-0.9)
[2016-08-01 08:25] LABS: BASOPHIL% 0.7 % (0-2.5); DIFF IND NO; EOSINOPHIL# 0.1 X10e3 (0-0.7); EOSINOPHIL% 1.6 % (0.0-7.0); HEMATOCRIT 34.4 % (38.0-50.0); LYMPHOCYTE# 1.7 X10e3 (1.0-3.5); LYMPHOCYTE% 27.3 % (17.0-45.0); MEAN CELL VOLUME 78.9 FL (83-96); MEAN CORPUSCULAR HEMOGLOBIN 25.1 PG (28-34); MEAN CORPUSCULAR HGB CONC 31.9 g/dL (30-36); MEAN PLATELET VOLUME 9.6 FL (6.5-11.5); MONOCYTE# 0.5 X10e3 (0-1.0); MONOCYTE% 7.4 % (3.0-12.0); PLATELET COUNT 148 X10e3 (140-420); RED BLOOD COUNT 4.36 X10e (3.90-5.60); RED CELL DISTRIBUTION WIDTH 18.5 % (11.0-15.5); WHITE BLOOD COUNT 6.3 X10e3 (4.0-10.5)
[2016-08-01 09:41] LABS: POC - CKMB 1.8 ng/mL (0.0-7.9); POC - TROPONIN <0.05 ng/mL (<=0.05)
== END 2016-08-01 12:02 | disposition home or self-care (01) ==
LOC: CED 06:46
PROVIDERS: Emergency Medicine
DX: R07.89 Other chest pain (principal); N50.82 Scrotal pain; E11.9 Type 2 diabetes mellitus without complications; I25.10 Atherosclerotic heart disease of native coronary artery without angina pectoris; I10 Essential (primary) hypertension; Z95.1 Presence of aortocoronary bypass graft; Z79.82 Long term (current) use of aspirin; Z79.899 Other long term (current) drug therapy
CPT/HCPCS: 36415; 71010; 71275; 76870; 80048; 80076; 82553; 83880; 84484; 85025; 85379; 85610; 85730; 93005; 96374; 99285; J1885; J2270; Q9967